=== PATIENT | male | born 1930 | race Caucasian/White ===

== ENCOUNTER 2017-04-28 10:06 | Inpatient (IN) | payer OTHER ==
[2017-04-28 10:32] VITALS: BMI 31.4
[2017-04-28] MEDS ORDERED: ACETAMINOPHEN 1000 MG/100 ML VIAL (NON FORMULARY) IVPB ONE (10:45)
[2017-04-28 11:19] LABS: HEMOGLOBIN 13.4 GM/dL (11.7-16.9); RDW 20.3 % (11.9-15.9)
[2017-04-28 11:27] LABS: HEMATOCRIT 40.4 % (35.4-49); MCH 38.3 pg (25.7-33.7); MCHC 33.2 g/dl (32.0-35.9); MEAN CELL VOLUME 115.3 fl (80-96); MEAN PLT VOLUME 9.8 fl (7.5-11.1); PLATELET COUNT 137 K/MM3 (134-434); WHITE BLOOD COUNT 15.6 K/mm3 (4.0-10.0)
[2017-04-28 11:34] LABS: URINE APPEARANCE CLEAR; URINE BLOOD NEGATIVE (NEGATIVE); URINE COLOR AMBER; URINE GLUCOSE (UA) NEGATIVE (NEGATIVE); URINE KETONE NEGATIVE (NEGATIVE); URINE LEUK ESTERASE NEGATIVE (NEGATIVE); URINE NITRITE NEGATIVE (NEGATIVE); URINE PROTEIN NEGATIVE (NEGATIVE); URINE UROBILINOGEN 4.0 E.U/dl mg/dL (0.2-1.0)
[2017-04-28] MEDS ORDERED: ACETAMINOPHEN INJECTION 100 ML IVPB ONE (11:35)
[2017-04-28 11:41] LABS: INR 1.49 (0.82-1.09); PROTHROMBIN TIME (PATIENT) 16.8 SEC (9.98-11.88)
[2017-04-28 11:44] LABS: ACTIVATED PTT 27.7 SECONDS (26.9-34.4)
[2017-04-28 11:53] LABS: ALBUMIN 3.7 g/dl (3.4-5.0); ANION GAP 8 (8-16); BILIRUBIN,TOTAL 8.4 mg/dL (0.2-1.0); BLOOD UREA NITROGEN 17 mg/dL (7-18); CALCIUM 8.3 mg/dL (8.5-10.1); CHLORIDE 107 mmol/L (98-107); CO2 26 mmol/L (21-32); CREATININE 1.1 mg/dL (0.7-1.3); GLUCOSE,RANDOM 145 mg/dL (74-106); POTASSIUM 3.7 mmol/L (3.5-5.1); SGOT/AST 146 U/L (15-37); SGPT/ALT 316 U/L (12-78); SODIUM 141 mmol/L (136-145); TOT PROT 6.5 g/dl (6.4-8.2)
[2017-04-28] MEDS ORDERED: SODIUM CHLORIDE 500 ML IV STA ×4 (11:54→16:54)
--- NOTE | 2017-04-28 11:54 | PDOC ---
History of Present Illness <Gabriel Franks - Last Filed: 04/28/17 16:07> - General History Source: Patient Exam Limitations: No Limitations - History of Present Illness Initial Comments: 04/28/17 11:59 The patient is a 86 year old male with history of ascending aortic aneurysm who presents to the ED for RUQ pain with loose stools for approximatly 1 day. He describes his pain as cramping and intermittent. The patient is also reports fever, Tmax 103, generalized weakness, and slurred speech today. He denies cough or chest pain. He denies headache or neck pain. He denies any urinary complaints. PCP: Dr. Ingram <Jazmine Carrasquillo - Last Filed: 04/28/17 16:36> - General Chief Complaint: SIRS, Suspected/Possible Stated Complaint: WEAKNESS Time Seen by Provider: 04/28/17 10:37 Past History - Past Medical History Anemia: Yes Cardiac Disorders: Yes (aneurysm) COPD: No GI Disorders: Yes (DIVERTICULOSIS;COLON POLYPS) HTN: Yes - Surgical History Abdominal Surgery: Yes (HERNIA REPAIR) - Suicide/Smoking/Psychosocial Hx Smoking History: Former smoker Have you smoked in the past 12 months: No Information on smoking cessation initiated: No Hx Alcohol Use: No Drug/Substance Use Hx: No Substance Use Type: None Hx Substance Use Treatment: No <Gabriel Franks - Last Filed: 04/28/17 16:07> <Jazmine Carrasquillo - Last Filed: 04/28/17 16:36> - Past Medical History Allergies/Adverse Reactions: Allergies Allergy/AdvReac Type Severity Reaction Status Date / Time No Known Allergies Allergy Verified 04/28/17 10:32 Home Medications: Ambulatory Orders Furosemide 20 mg PO ASDIR 12/05/14 Nebivolol HCl [Bystolic] 2.5 mg PO DAILY 12/05/14 Aspirin [ASA -] 81 mg PO DAILY 03/01/16 Cholecalciferol (Vitamin D3) [Vitamin D3] 10,000 unit PO DAILY 03/01/16 Folic Acid 1 mg PO DAILY 03/01/16 [place]-3S/Dha/Epa/Fish Oil [Fish Oil 1,200 mg Softgel] 1 each PO DAILY 03/01/16 Vitamin B Complex [B Complex] 1 each PO DAILY 03/01/16 Review of Systems - Review of Systems Able to Perform ROS?: Yes Comments:: 04/28/17 12:14 CONSTITUTIONAL: +Fever, generalized weakness. EYES: No visual changes ENT: No ear pain, no sore throat CARDIOVASCULAR: No chest pain, no palpitations RESPIRATORY: No cough, no SOB GI: +Abdominal pain, loose stools. No vomiting, no constipation, no diarrhea GENITOURINARY: No dysuria, no frequency, no hematuria MUSCULOSKELETAL: No backpain, no joint pain, no myalgias SKIN: No rash NEURO: No headache <Jazmine Carrasquillo - Last Filed: 04/28/17 16:36> *Physical Exam - Vital Signs Last Vital Signs Temp Pulse Resp BP Pulse Ox 103.8 F H 87 24 125/81 92 L 04/28/17 10:27 04/28/17 10:27 04/28/17 10:27 04/28/17 10:27 04/28/17 10:27 <Gabriel Franks - Last Filed: 04/28/17 16:07> - Vital Signs Last Vital Signs Temp Pulse Resp BP Pulse Ox 103.8 F H 87 24 125/81 92 L 04/28/17 10:27 04/28/17 10:27 04/28/17 10:27 04/28/17 10:27 04/28/17 10:27 - Physical Exam Comments: 04/28/17 15:09 CONSTITUTIONAL: Well-appearing; well-nourished; generally weak appearing HEAD: Normocephalic; atraumatic EYES: PERRL; EOM intact ENMT: External appears normal; normal oropharynx; dry mucous membranes NECK: Supple; non-tender; no cervical lymphadenopathy CARD: Normal S1, S2; no murmurs, rubs, or gallops RESP: Normal chest excursion with respiration; breath sounds clear and equal bilaterally; no wheezes, rhonchi, or rales ABD: Soft, non-distended; non-tender; no palpable organomegaly, no palpable hernias EXT: Normal ROM in all four extremities; non-tender to palpation; distal pulses intact SKIN: Jaundinced; Warm, dry, no rash NEURO: Slow to response to questions; awake and alert; oriented to self and place; moving all extremities symmetrically <Jazmine Carrasquillo - Last Filed: 04/28/17 16:36> Heart Score/ECG Review #1 04/28/17 13:04 EKG obtained 11:36. Normal sinus rhythm at 88 bpm. Normal EKG. <Jazmine Carrasquillo - Last Filed: 04/28/17 16:36> ED Treatment Course - LABORATORY CBC & Chemistry Diagram: 04/28/17 11:11 04/28/17 11:11 - ADDITIONAL ORDERS Additional order review: Laboratory Results 04/28/17 04/28/17 11:11 11:09 PT with INR 16.80 H INR 1.49 H PTT (Actin FS) 27.7 Urine Color Yoko Urine Appearance Clear Urine pH 5.0 Ur Specific [place] 1.012 Urine Protein Negative Urine Glucose (UA) Negative Urine Ketones Negative Urine Blood Negative Urine Nitrite Negative Urine Bilirubin 2.0 Urine Urobilinogen 4.0 e.u/dl Ur Leukocyte Esterase Negative 04/28/17 11:11 RBC 3.50 L MCV 115.3 H MCHC 33.2 RDW 20.3 H MPV 9.8 D Neutrophils % No Result Required. Lymphocytes % No Result Required. - RADIOLOGY Radiology Studies Ordered: Category Date Time Status CHEST X-RAY PORTABLE* [RAD] Stat Radiology 04/28/17 10:43 Taken - Medications Given in the ED: ED Medications Discontinued Medications Generic Name Dose Route Start Last Admin Trade Name Deuceq PRN Reason Stop Dose Admin Acetaminophen 1,000 mg 04/28/17 10:45 04/28/17 11:39 Ofirmev Injection - IVPB 04/28/17 10:46 1,000 mg ONCE ONE Administration <Gabriel Franks - Last Filed: 04/28/17 16:07> - LABORATORY CBC & Chemistry Diagram: 04/28/17 11:11 04/28/17 11:11 - ADDITIONAL ORDERS Additional order review: Laboratory Results 04/28/17 04/28/17 11:11 11:09 PT with INR 16.80 H INR 1.49 H PTT (Actin FS) 27.7 Urine Color Yoko Urine Appearance Clear Urine pH 5.0 Ur Specific [place] 1.012 Urine Protein Negative Urine Glucose (UA) Negative Urine Ketones Negative Urine Blood Negative Urine Nitrite Negative Urine Bilirubin 2.0 Urine Urobilinogen 4.0 e.u/dl Ur Leukocyte Esterase Negative 04/28/17 11:11 RBC 3.50 L MCV 115.3 H MCHC 33.2 RDW 20.3 H MPV 9.8 D Neutrophils % No Result Required. Lymphocytes % No Result Required. - Medications Given in the ED: ED Medications Discontinued Medications Generic Name Dose Route Start Last Admin Trade Name Eugene PRN Reason Stop Dose Admin Acetaminophen 1,000 mg 04/28/17 10:45 04/28/17 11:39 Ofirmev Injection - IVPB 04/28/17 10:46 1,000 mg ONCE ONE Administration <Jazmine Carrasquillo - Last Filed: 04/28/17 16:36> Medical Decision Making - Medical Decision Making 04/28/17 16:07 Patient is an 86-year-old male who presents to the ER with signs and symptoms of acute cholangitis. Patient's febrile, jaundice, with mild right-sided abdominal tenderness to palpation. CBC reveals leukocytosis with predominance of neutrophils. CMP reveals elevated bilirubin with increased direct fraction, elevated AST/ALTs and alkaline phosphatase. Ultrasound reveals no evidence of acute cholecystitis but presence of biliary sludge. Patient is received IV fluids, acetaminophen for fever control, and IV Zosyn. Case discussed with surgery. Agrees with plan of care. Will consult GI. Will admit to noncardiac telemetry. <Gabriel Franks - Last Filed: 04/28/17 16:07> - Medical Decision Making 04/28/17 16:[address] Hickman of general surgery and Dr. Marie of gastroenterology <Jazmine Carrasquillo - Last Filed: 04/28/17 16:36> *DC/Admit/Observation/Transfer - Discharge Dispostion Admit: Yes <Gabriel Franks - Last Filed: 04/28/17 16:07> - Attestations Scribe Attestion: 04/28/17 12:18 Documentation prepared by Jazmine Carrasquillo, acting as medical health researcher for Gabriel Franks MD. <Jazmine Carrasquillo - Last Filed: 04/28/17 16:36> Diagnosis at time of Disposition: Acute cholangitis - Discharge Dispostion Condition at time of disposition: Fair
[2017-04-28 11:55] LABS: ALK PHOS 274 U/L (45-117)
[2017-04-28 12:03] LABS: VENOUS PC02 44.5 mmHg (38-52); VENOUS PH 7.39 (7.32-7.42); VENOUS PO2 28.6 mmHg (28-48)
[2017-04-28 12:08] LABS: PLATELET ESTIMATE NORMAL
[2017-04-28] MEDS ORDERED: PIPERACIL/TAZOB 3.375 GM 3.375 GM/50 ML PREMIX IVPB ONE (12:28)
[2017-04-28] MEDS ORDERED: PIPERACILLIN/TAZOB 3.375 GM 3.375 GM in DEXTROSE 5%-WATER - 50 ML IVPB ONE (12:30)
[2017-04-28] MEDS ORDERED: PIPERACILLIN/TAZOB 3.375 GM 3.375 GM/50 ML BAG IVPB ONE (12:32)
--- NOTE | 2017-04-28 13:06 | EKG ---
Test Reason : Blood Pressure : / mmHG Vent. Rate : 088 BPM Atrial Rate : 088 BPM P-R Int : 206 ms QRS Dur : 094 ms QT Int : 362 ms P-R-T Axes : 000 -23 011 degrees QTc Int : 438 ms NORMAL SINUS RHYTHM NORMAL ECG WHEN COMPARED WITH ECG OF 01-MAR-2016 10:10, NO SIGNIFICANT CHANGE WAS FOUND Confirmed by DENITA BYRNE MD ([id number]) on 04/28/2017 1:06:06 PM Referred By: Confirmed By:DENITA BYRNE MD
[2017-04-28 13:20] LABS: BILIRUBIN,DIRECT 6.6 mg/dL (0.0-0.2)
[2017-04-28] MEDS ORDERED: MORPHINE SULFATE 10 MG/1 ML *VIAL IVPUSH PRN (16:36)
[2017-04-28] MEDS ORDERED: VANCOMYCIN 1,000 MG in DEXTROSE 5%-WATER - 250 ML IVPB SCH (16:45)
[2017-04-28] MEDS ORDERED: VANCOMYCIN 1,000 MG in DEXTROSE 5%-WATER - 250 ML IVPB ONE (16:45)
--- NOTE | 2017-04-28 17:29 | CONSULT ---
Consult Consult Specialty:: General Surgery Referred by:: Gabriel Franks Reason for Consultation:: jaundice, fever, gb sludge, ?cholangitis - History of Present Illness Chief Complaint: epigastric/periumbilical pain History of Present Illness: 86yo M with ascending aortic aneurysm on nebivolol and baby asa daily, s/p bilateral inguinal hernia repair and laparoscopic ventral hernia repair secondary to associated intestinal obstruction 03/17, was in usual state of health recently but has experienced chills and feeling very cold the last two nights, some diarrhea yesterday with a little nausea but no vomiting, and this morning experienced significant upper central abdominal pain and could not get himself up off the toilet. He was brought to the ER by EMS, and noted to have oral temp 100, rectal temp 103, wbc 16 with elevated LFTs (bili 10/04 direct), BUN /Cr 17/1.1, INR 1.5, neg UA, and US showed gallbladder with sludge but no stones , and no other signs of cholecystitis or biliary ductal dilation. He has been given some IV fluids, kept NPO, pain responded well to morphine, and he had a dose of Zosyn in the ER. Surgery is consulted to evaluate for likely cholangitis. Amylase and lipase were also checked and are high at 490 and 4670, consistent with biliary pancreatitis as well. GI has also been consulted. The patient has been admitted to the medical service with ID consult pending, too. - History Source History Provided By: Patient, Family Member ( at bedside) Limitations to Obtaining History: No Limitations - Past Medical History Cardio/Vascular: Yes: Aneurysm (ascending aortic aneurysm (4.1 cm per echo )), HTN Gastrointestinal: Yes: Diverticulosis, Other (colonic polyps) - Past Surgical History Past Surgical History: Yes: Cataract Removal (bilateral), Colonoscopy, Hernia Repair (bilateral inguinal, laparoscopic ventral w/associated obstruction 03/17 at [facility]), Upper Endoscopy - Alcohol/Substance Use Hx Alcohol Use: Yes (wine sometimes) History of Substance Use: reports: None - Smoking History Smoking history: Former smoker Have you smoked in the past 12 months: No If you are a former smoker, when did you quit?: 60 yrs ago - Social History Usual Living Arrangement: With Spouse Home Medications - Allergies Allergies/Adverse Reactions: Allergies Allergy/AdvReac Type Severity Reaction Status Date / Time No Known Allergies Allergy Verified 04/28/17 10:32 - Home Medications Home Medications: Ambulatory Orders Furosemide 20 mg PO ASDIR 12/05/14 Nebivolol HCl [Bystolic] 2.5 mg PO DAILY 12/05/14 Aspirin [ASA -] 81 mg PO DAILY 03/01/16 Cholecalciferol (Vitamin D3) [Vitamin D3] 10,000 unit PO DAILY 03/01/16 Folic Acid 1 mg PO DAILY 03/01/16 [place]-3S/Dha/Epa/Fish Oil [Fish Oil 1,200 mg Softgel] 1 each PO DAILY 03/01/16 Vitamin B Complex [B Complex] 1 each PO DAILY 03/01/16 Family Disease History - Family Disease History Family Disease History: CA: Sister ( of pancreatic CA at 50) Review of Systems - Review of Systems Constitutional: reports: Chills (last 2 nights), Weakness (could not get up from toilet this morning). denies: Fever, Loss of Appetite Eyes: reports: Other (reading glasses used). denies: Recent Change in Vision HENT: reports: Hearing Loss (uses hearing aids bilat - left at home). denies: Difficult Swallowing, Nasal Congestion, Throat Pain Neck: denies: Swollen Glands, Tenderness Cardiovascular: denies: Chest Pain, Palpitations Respiratory: denies: Cough, SOB Gastrointestinal: reports: Abdominal Pain (with hpi), Diarrhea (yesterday with hpi), Nausea (last night). denies: Constipation, Vomiting Genitourinary: denies: Burning, Dysuria Musculoskeletal: denies: Back Pain, Joint Pain, Muscle Pain Integumentary: reports: Change in Color (pt and did not notice until ER pointed out). denies: Rash Neurological: denies: Confusion, Headache, Unsteady Gait (denies) Psychiatric: denies: Anxiety, Depression Physical Exam Vital Signs: Vital Signs Temperature 98.9 F 04/28/17 16:53 Pulse Rate 69 04/28/17 16:53 Respiratory Rate 18 04/28/17 16:53 Blood Pressure 97/62 04/28/17 16:53 O2 Sat by Pulse Oximetry (%) 98 04/28/17 16:53 Constitutional: Yes: Well Nourished, No Distress, Calm Eyes: Yes: EOM Intact, Sclera Icterus (mild) HENT: Yes: Atraumatic, Normocephalic Neck: Yes: Supple, Trachea Midline Cardiovascular: Yes: Regular Rate and Rhythm, Murmur Respiratory: Yes: Regular, CTA Bilaterally Gastrointestinal: Yes: Normal Bowel Sounds, Soft, Tenderness, Epigastrium (mild tenderness to deep palpation epigastric only, no R/G). No: Distention, Hernia, Tenderness, Rebound ...Rectal Exam: Yes: Deferred Renal/: No: CVA Tenderness - Left, CVA Tenderness - Right Musculoskeletal: No: Back Pain (no direct tenderness), Joint Swelling Extremities: No: Cool, Cyanosis Edema: Yes Edema: LLE: Trace (pitting), RLE: Trace (pitting) Peripheral Pulses WNL: Yes Integumentary: Yes: Jaundice (mild (per , was more earlier today when pointed out on arrival to ER)). No: Rash Neurological: Yes: Alert, Oriented, Confusion (moments of confusion/ forgetfulness, slow to answer at times, speaks slowly) Psychiatric: Yes: Alert. No: Agitated Labs: CBC, BMP 04/28/17 11:11 04/28/17 11:11 CMP Sodium 141 mmol/L (136-145) 04/28/17 11:11 Potassium 3.7 mmol/L (3.5-5.1) 04/28/17 11:11 Chloride 107 mmol/L (98-107) 04/28/17 11:11 Carbon Dioxide 26 mmol/L (21-32) 04/28/17 11:11 Anion Gap 8 (8-16) 04/28/17 11:11 BUN 17 mg/dL (7-18) D 04/28/17 11:11 Creatinine 1.1 mg/dL (0.7-1.3) D 04/28/17 11:11 Creat Clearance w eGFR > 60 (>60) 04/28/17 11:11 Random Glucose 145 mg/dL (74-106) H D 04/28/17 11:11 Lactic Acid 1.6 mmol/L (0.0-2.0) 04/28/17 11:55 Calcium 8.3 mg/dL (8.5-10.1) L 04/28/17 11:11 Total Bilirubin 8.4 mg/dL (0.2-1.0) H D 04/28/17 11:11 Direct Bilirubin 6.6 mg/dL (0.0-0.2) H 04/28/17 11:11 AST 146 U/L (15-37) H D 04/28/17 11:11 ALT 316 U/L (12-78) H D 04/28/17 11:11 Alkaline Phosphatase 274 U/L (45-117) H D 04/28/17 11:11 Creatine Kinase 124 IU/L (39-308) 04/28/17 11:11 Troponin I < 0.02 ng/ml (0.00-0.05) 04/28/17 11:11 Total Protein 6.5 g/dl (6.4-8.2) 04/28/17 11:11 Albumin 3.7 g/dl (3.4-5.0) D 04/28/17 11:11 Total Amylase 490 U/L (25-115) H 04/28/17 16:03 Lipase 4674 U/L (73-393) H 04/28/17 16:03 INR, PTT INR 1.49 (0.82-1.09) H 04/28/17 11:11 Urine Test Results Urine Color Yoko 04/28/17 11:09 Urine Appearance Clear 04/28/17 11:09 Urine pH 5.0 (5.0-8.0) 04/28/17 11:09 Ur Specific [place] 1.012 (1.001-1.035) 04/28/17 11:09 Urine Protein Negative (NEGATIVE) 04/28/17 11:09 Urine Glucose (UA) Negative (NEGATIVE) 04/28/17 11:09 Urine Ketones Negative (NEGATIVE) 04/28/17 11:09 Urine Blood Negative (NEGATIVE) 04/28/17 11:09 Urine Nitrite Negative (NEGATIVE) 04/28/17 11:09 Urine Bilirubin 2.0 (NEGATIVE) 04/28/17 11:09 Ur Leukocyte Esterase Negative (NEGATIVE) 04/28/17 11:09 lactate down from 2.9 am/lip just run - high Imaging - Results Ultrasound: Report Reviewed (layering sludge but no stones, no wall thickening or pericholecystic fluid, no biliary ductal dilation), Image Reviewed MRI: Pending Problem List - Problems (1) Acute biliary pancreatitis without infection or necrosis Assessment/Plan: probably secondary to sludge in CBD or small stones passing, as US showed only sludge and no stones NPO/generous IV fluids MRCP with contrast pending, GI consult pending need to evaluate cbd for ongoing obstruction trend labs pain meds prn will follow with you Code(s): K85.10 - BILIARY ACUTE PANCREATITIS WITHOUT NECROSIS OR INFECTION (2) Cholelithiasis with cholangitis with biliary obstruction Assessment/Plan: probably sludge in CBD as noted above MRCP pending NPO/IVF pain meds prn agree with continuing Zosyn, ID consulted consider hepatitis panel, as bilirubin is quite high for stone disease will follow Code(s): K80.21 - CALCULUS OF GALLBLADDER W/O CHOLECYSTITIS WITH OBSTRUCTION; K83.0 - CHOLANGITIS Qualifiers: Cholelithiasis location: bile duct Cholangitis acuity: acute Qualified Code(s): K80.33 - Calculus of bile duct with acute cholangitis with obstruction (3) Epigastric abdominal pain Assessment/Plan: improved significantly from earlier Code(s): R10.13 - EPIGASTRIC PAIN (4) Aneurysm, aorta, thoracic Assessment/Plan: ok to continue bystolic with sips of water as BP tolerates cardiology also consulted pt to go to telemetry floor hold aspirin given pending possible interventions (ERCP? surgery?) Code(s): I71.2 - THORACIC AORTIC ANEURYSM, WITHOUT RUPTURE Qualifiers: Presence of rupture: without rupture Qualified Code(s): I71.2 - Thoracic aortic aneurysm, without rupture
[2017-04-28] MEDS ORDERED: PIPERACILLIN/TAZOB 3.375 GM 3.375 GM in DEXTROSE 5%-WATER - 50 ML IVPB SCH (18:00)
[2017-04-28] MEDS ORDERED: PIPERACIL/TAZOB 3.375 GM 3.375 GM/50 ML PREMIX IVPB SCH (18:00)
[2017-04-28] MEDS ORDERED: VANCOMYCIN 1 GRAM (PRE-DOCKED) 1,000 MG/250 ML BAG IVPB ONE (18:33)
--- NOTE | 2017-04-28 19:44 | CON.GI ---
Consult Consult Specialty:: GI Referred by:: Dr Ingram - History of Present Illness History of Present Illness: 86 y/o male was admiited with diarrhea and severe weakness. Yesterday he developed abdominal pain which was resolved. Abdominal ultrasound and MRCP revealed dilated gallbladder associated wth normal CBD. Mri revealed mild pancreatitis - Past Medical History Cardio/Vascular: Yes: Aneurysm (ascending aortic aneurysm (4.1 cm per echo )), HTN Gastrointestinal: Yes: Diverticulosis, Other (colonic polyps) - Past Surgical History Past Surgical History: Yes: Cataract Removal (bilateral), Colonoscopy, Hernia Repair (bilateral inguinal, laparoscopic ventral w/associated obstruction 03/17 at [facility]), Upper Endoscopy - Alcohol/Substance Use Hx Alcohol Use: Yes (wine sometimes) History of Substance Use: reports: None - Smoking History Smoking history: Former smoker Have you smoked in the past 12 months: No If you are a former smoker, when did you quit?: 60 yrs ago - Social History Usual Living Arrangement: With Spouse Home Medications - Allergies Allergies/Adverse Reactions: Allergies Allergy/AdvReac Type Severity Reaction Status Date / Time No Known Allergies Allergy Verified 04/28/17 10:32 - Home Medications Home Medications: Ambulatory Orders Furosemide 20 mg PO ASDIR 12/05/14 Nebivolol HCl [Bystolic] 2.5 mg PO DAILY 12/05/14 Aspirin [ASA -] 81 mg PO DAILY 03/01/16 Cholecalciferol (Vitamin D3) [Vitamin D3] 10,000 unit PO DAILY 03/01/16 Folic Acid 1 mg PO DAILY 03/01/16 [place]-3S/Dha/Epa/Fish Oil [Fish Oil 1,200 mg Softgel] 1 each PO DAILY 03/01/16 Vitamin B Complex [B Complex] 1 each PO DAILY 03/01/16 Family Disease History - Family Disease History Family Disease History: CA: Sister ( of pancreatic CA at 50) Physical Exam-GI Vital Signs: Vital Signs Temperature 98.1 F 04/28/17 18:58 Pulse Rate 74 04/28/17 18:58 Respiratory Rate 20 04/28/17 18:58 Blood Pressure 104/65 04/28/17 18:58 O2 Sat by Pulse Oximetry (%) 98 04/28/17 16:53 Constitutional: Yes: Well Nourished Eyes: Yes: Conjunctiva Clear, Occular Prosthesis HENT: Yes: Tonsillar Exudate Cardiovascular: Yes: Regular Rate and Rhythm Respiratory: Yes: CTA Bilaterally ...Palpate: Yes: Soft. No: Firm/Rigid, Guarding, Hepatomegaly, Mass, Pulsatile Mass, Splenomegaly, Tenderness Labs: CBC, BMP 04/28/17 11:11 04/28/17 11:11 INR, PTT INR 1.49 (0.82-1.09) H 04/28/17 11:11 Hepatic Panel Total Bilirubin 8.4 mg/dL (0.2-1.0) H D 04/28/17 11:11 Direct Bilirubin 6.6 mg/dL (0.0-0.2) H 04/28/17 11:11 AST 146 U/L (15-37) H D 04/28/17 11:11 ALT 316 U/L (12-78) H D 04/28/17 11:11 Alkaline Phosphatase 274 U/L (45-117) H D 04/28/17 11:11 Albumin 3.7 g/dl (3.4-5.0) D 04/28/17 11:11 Problem List - Problems (1) Biliary acute pancreatitis Assessment/Plan: associated with biliary sludge , normal CBD, possible acute cholecystitis causing fever R> expect lipase to normalize Actigall 300mg bid wiil start on Ceftriaxone and Flagyl discussed with Dr Oropeza and Dr Herman and Marylou if clinical findings worsen will need percutaneous cholecystostomy Code(s): K85.10 - BILIARY ACUTE PANCREATITIS WITHOUT NECROSIS OR INFECTION
[2017-04-28] MEDS: D5-1/2NS+20 MEQ KCL - 20 MEQ/1,000 ML INFUS.BAG IV SCH (21:26)
[2017-04-28] MEDS: HEPARIN NA (PORCINE) 5,000 UNITS/ML 1ML VIAL SQ SCH (22:40)
[2017-04-28] MEDS: CEFTRIAXONE 1 G/50 ML PREMIX 50 ML IVPB SCH (22:40)
[2017-04-28] MEDS: URSODIOL 300 MG CAPSULE PO SCH (22:40)
[2017-04-29 06:34] LABS: BASO % 0.3 % (0-2.0); HEMATOCRIT 31.8 % (35.4-49); LYMPH % 13.3 % (8-40); MCH 39.7 pg (25.7-33.7); MCHC 34.6 g/dl (32.0-35.9); MEAN CELL VOLUME 114.9 fl (80-96); MEAN PLT VOLUME 9.8 fl (7.5-11.1); MONO % 4.3 % (3.8-10.2); NEUT % 82.1 % (42.8-82.8); PLATELET COUNT 117 K/MM3 (134-434); RBC 2.76 M/mm3 (4.00-5.60); RDW 20.4 % (11.9-15.9); WHITE BLOOD COUNT 13.9 K/mm3 (4.0-10.0)
[2017-04-29 06:39] LABS: INR 1.69 (0.82-1.09); PROTHROMBIN TIME (PATIENT) 19.1 SEC (9.98-11.88)
[2017-04-29 06:58] LABS: ALBUMIN 2.8 g/dl (3.4-5.0); ANION GAP 10 (8-16); BLOOD UREA NITROGEN 22 mg/dL (7-18); CALCIUM 7.9 mg/dL (8.5-10.1); CHLORIDE 108 mmol/L (98-107); CO2 25 mmol/L (21-32); GLUCOSE,RANDOM 114 mg/dL (74-106); POTASSIUM 3.4 mmol/L (3.5-5.1); SODIUM 143 mmol/L (136-145)
[2017-04-29 07:01] LABS: ALK PHOS 191 U/L (45-117); BILIRUBIN,TOTAL 6.9 mg/dL (0.2-1.0); CREATININE 0.8 mg/dL (0.7-1.3); SGOT/AST 94 U/L (15-37); SGPT/ALT 222 U/L (12-78); TOT PROT 5.3 g/dl (6.4-8.2)
[2017-04-29 07:02] LABS: AMYLASE 263 U/L (25-115)
[2017-04-29 07:08] LABS: LIPASE 1920 U/L (73-393)
--- NOTE | 2017-04-29 08:50 | HP ---
Admitting History and Physical - Admission History of Present Illness: 86yo M with ascending aortic aneurysm on nebivolol and baby asa daily, s/p bilateral inguinal hernia repair and laparoscopic ventral hernia repair secondary to associated intestinal obstruction 03/17, was in usual state of health recently but has experienced chills and feeling very cold the last two nights, some diarrhea yesterday with a little nausea but no vomiting, and this morning experienced significant upper central abdominal pain and could not get himself up off the toilet. He was brought to the ER by EMS, and noted to have oral temp 100, rectal temp 103, wbc 16 with elevated LFTs (bili 10/04 direct), BUN /Cr 17/1.1, INR 1.5, neg UA, and US showed gallbladder with sludge but no stones , and no other signs of cholecystitis or biliary ductal dilation. He has been given some IV fluids, kept NPO, pain responded well to morphine, and he had a dose of Zosyn in the ER. Comfortable this am - Past Medical History Cardiovascular: Yes: Aneurysm (ascending aortic aneurysm (4.1 cm per echo) ), HTN Gastrointestinal: Yes: Diverticulosis, Other (colonic polyps) - Past Surgical History Past Surgical History: Yes: Cataract Removal (bilateral), Colonoscopy, Hernia Repair (bilateral inguinal, laparoscopic ventral w/associated obstruction 03/17 at [facility]), Upper Endoscopy - Smoking History Smoking history: Former smoker Have you smoked in the past 12 months: No If you are a former smoker, when did you quit?: 60 yrs ago - Alcohol/Substance Use Hx Alcohol Use: Yes (wine sometimes) History of Substance Use: reports: None Home Medications - Allergies Allergies/Adverse Reactions: Allergies Allergy/AdvReac Type Severity Reaction Status Date / Time No Known Allergies Allergy Verified 04/28/17 10:32 - Home Medications Home Medications: Ambulatory Orders Furosemide 20 mg PO ASDIR 12/05/14 Nebivolol HCl [Bystolic] 2.5 mg PO DAILY 12/05/14 Aspirin [ASA -] 81 mg PO DAILY 03/01/16 Cholecalciferol (Vitamin D3) [Vitamin D3] 10,000 unit PO DAILY 03/01/16 Folic Acid 1 mg PO DAILY 03/01/16 [place]-3S/Dha/Epa/Fish Oil [Fish Oil 1,200 mg Softgel] 1 each PO DAILY 03/01/16 Vitamin B Complex [B Complex] 1 each PO DAILY 03/01/16 Family Disease History - Family Disease History Family Disease History: CA: Sister ( of pancreatic CA at 50) Physical Examination Vital Signs: Vital Signs Temperature 98.2 F 04/29/17 05:42 Pulse Rate 69 04/29/17 05:42 Respiratory Rate 20 04/29/17 05:42 Blood Pressure 101/60 04/29/17 05:42 O2 Sat by Pulse Oximetry (%) 98 04/28/17 21:00 Cardiovascular: Yes: Regular Rate and Rhythm Respiratory: Yes: Regular, CTA Bilaterally Gastrointestinal: Yes: Normal Bowel Sounds, Soft. No: Tenderness Labs: CBC, BMP 04/29/17 06:05 04/29/17 06:05 Imaging - Results Ultrasound: Report Reviewed Problem List - Problems (1) Acute cholangitis Assessment/Plan: IV ABX ID/GI/SURGERY ON BOARD IVF NPO FOLLOW LABS Code(s): K83.0 - CHOLANGITIS (2) Biliary acute pancreatitis Assessment/Plan: ABOVE Code(s): K85.10 - BILIARY ACUTE PANCREATITIS WITHOUT NECROSIS OR INFECTION (3) Cholelithiasis with cholangitis with biliary obstruction Assessment/Plan: ABOVE Code(s): K80.21 - CALCULUS OF GALLBLADDER W/O CHOLECYSTITIS WITH OBSTRUCTION; K83.0 - CHOLANGITIS Qualifiers: Cholelithiasis location: bile duct Cholangitis acuity: acute Qualified Code(s): K80.33 - Calculus of bile duct with acute cholangitis with obstruction (4) Aneurysm, aorta, thoracic Assessment/Plan: STABLE Code(s): I71.2 - THORACIC AORTIC ANEURYSM, WITHOUT RUPTURE Qualifiers: Presence of rupture: without rupture Qualified Code(s): I71.2 - Thoracic aortic aneurysm, without rupture (5) Hypertension Assessment/Plan: MONITOR ON CURRENT MEDS Code(s): I10 - ESSENTIAL (PRIMARY) HYPERTENSION Qualifiers: Hypertension type: essential hypertension Qualified Code(s): I10 - Essential (primary) hypertension
[2017-04-29] MEDS: CEFTRIAXONE 1 G/50 ML PREMIX 50 ML IVPB SCH (09:11)
[2017-04-29] MEDS: URSODIOL 300 MG CAPSULE PO SCH ×2 (09:11→21:22)
[2017-04-29] MEDS: HEPARIN NA (PORCINE) 5,000 UNITS/ML 1ML VIAL SQ SCH (09:11)
[2017-04-29] MEDS: NEBIVOLOL 5 MG TABLET (FP) PO SCH (09:11)
--- NOTE | 2017-04-29 09:50 | CON.ID ---
Consult Consult Specialty:: Infectious Disease Referred by:: Primary Team Reason for Consultation:: sepsis - History of Present Illness History of Present Illness: 86 year old M with pmh of ascending aortic aneurysm on bystolic, and 2 prior hernia repairs presented with chills, diarrhea, and weakness. Patient states he had been feeling weak x 2 days and having nonbloody diarrhea. Patient found to be weak yesterday morning on the toilet and couldn't get off, which prompted him to come to the ER. In the ER he had a temp of 103. Patient endorses chills x 2 days. Patient denies chest pain, sob, abdominal pain, dysuria, hematuria. Patient lives at home with his without any pets. Patient does not smoke and drinks alcohol occasionally. 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 - History Source History Provided By: Patient Limitations to Obtaining History: No Limitations - Past Medical History Cardio/Vascular: Yes: Aneurysm (ascending aortic aneurysm (4.1 cm per echo )), HTN Gastrointestinal: Yes: Diverticulosis, Other (colonic polyps) - Past Surgical History Past Surgical History: Yes: Cataract Removal (bilateral), Colonoscopy, Hernia Repair (bilateral inguinal, laparoscopic ventral w/associated obstruction 03/17 at [facility]), Upper Endoscopy - Alcohol/Substance Use Hx Alcohol Use: Yes (wine sometimes) History of Substance Use: reports: None - Smoking History Smoking history: Former smoker Have you smoked in the past 12 months: No If you are a former smoker, when did you quit?: 60 yrs ago - Social History Usual Living Arrangement: With Spouse Home Medications - Allergies Allergies/Adverse Reactions: Allergies Allergy/AdvReac Type Severity Reaction Status Date / Time No Known Allergies Allergy Verified 04/28/17 10:32 - Home Medications Home Medications: Ambulatory Orders Furosemide 20 mg PO ASDIR 12/05/14 Nebivolol HCl [Bystolic] 2.5 mg PO DAILY 12/05/14 Aspirin [ASA -] 81 mg PO DAILY 03/01/16 Cholecalciferol (Vitamin D3) [Vitamin D3] 10,000 unit PO DAILY 03/01/16 Folic Acid 1 mg PO DAILY 03/01/16 [place]-3S/Dha/Epa/Fish Oil [Fish Oil 1,200 mg Softgel] 1 each PO DAILY 03/01/16 Vitamin B Complex [B Complex] 1 each PO DAILY 03/01/16 Family Disease History - Family Disease History Family Disease History: CA: Sister ( of pancreatic CA at 50) Review of Systems - Review of Systems Constitutional: reports: Chills, Fever. denies: Diaphoresis Eyes: reports: No Symptoms HENT: reports: No Symptoms Neck: reports: No Symptoms Cardiovascular: reports: No Symptoms Respiratory: reports: No Symptoms Gastrointestinal: reports: Diarrhea Neurological: reports: No Symptoms Physical Exam Vital Signs: Vital Signs Temperature 98.2 F 04/29/17 05:42 Pulse Rate 69 04/29/17 05:42 Respiratory Rate 20 04/29/17 05:42 Blood Pressure 101/60 04/29/17 05:42 O2 Sat by Pulse Oximetry (%) 98 04/28/17 21:00 Constitutional: Yes: No Distress, Calm Eyes: Yes: Conjunctiva Clear, EOM Intact, Sclera Icterus HENT: Yes: Atraumatic, Normocephalic. No: Thrush Neck: Yes: Supple, Trachea Midline Cardiovascular: Yes: Regular Rate and Rhythm, S1, S2 Respiratory: Yes: Regular, CTA Bilaterally Gastrointestinal: Yes: Normal Bowel Sounds, Soft, Abdomen, Obese, Other. No: Tenderness Edema: No Integumentary: Yes: Jaundice Neurological: Yes: Alert, Oriented Labs: CBC, BMP 04/29/17 06:05 04/29/17 06:05 Assessment/Plan Assessment: 1. Acute Cholangitis 2. Biliary pancreatitis 3. Acute cholecystitis Plan: 1. Zosyn 4.5g q8h 2. Surgery on board 3. GI on board 4. May need Perc bhargavi if patient does not improve
--- NOTE | 2017-04-29 10:26 | PN ---
Teaching Attending Note Name of Resident: Won Faith ATTENDING PHYSICIAN STATEMENT I saw and evaluated the patient. I reviewed the resident's note and discussed the case with the resident. I agree with the resident's findings and plan as documented. SUBJECTIVE:Chart reviewed Examined absolutely no abd pain Tmax 103.8 OBJECTIVE: ASSESSMENT AND PLAN: Microbiology 04/28/17 11:09 Urine - Urine - Catheterized Urine Culture - Final NO GROWTH OBTAINED Laboratory Tests 04/28/17 04/28/17 04/28/17 11:09 11:11 11:16 WBC 15.6 H D Hgb Hct Plt Count INR Lactic Acid 2.9 H* Total Bilirubin ALT Alkaline Phosphatase Ur Leukocyte Esterase Negative 04/28/17 04/29/17 04/29/17 11:55 06:05 06:05 WBC 13.9 H Hgb 11.0 L D Hct 31.8 L D Plt Count 117 L INR Lactic Acid 1.6 Total Bilirubin 6.9 H ALT 222 H D Alkaline Phosphatase 191 H D Ur Leukocyte Esterase 04/29/17 06:05 WBC Hgb Hct Plt Count INR 1.69 H Lactic Acid Total Bilirubin ALT Alkaline Phosphatase Ur Leukocyte Esterase Assessment Biliary pancreatitis with obstruction. ? Cholecystitis Cholangitis Plan Zosyn pending final cultures Surgery GI on board ? Drainage catheter Chris CONTRERAS Problem List - Problems (1) Cholecystitis Code(s): K81.9 - CHOLECYSTITIS, UNSPECIFIED (2) Acute cholangitis Code(s): K83.0 - CHOLANGITIS (3) Biliary acute pancreatitis Code(s): K85.10 - BILIARY ACUTE PANCREATITIS WITHOUT NECROSIS OR INFECTION
--- NOTE | 2017-04-29 10:43 | PN ---
Progress Note, Physician Chief Complaint: fever, epigastric pain History of Present Illness: Pt with cholecystitis and biliary pancreatitis with cholangitis and jaundice, seen and examined in bed. No pain currently, no more fevers, no BM yet. Thirsty/ using mouth swabs, but not hungry. Has been OOB briefly for MRCP yesterday. No specific complaints. MRCP was negative for ductal blockage or dilation, did show cholecystitis and pancreatitis. Labs are decreasing somewhat (LFTs and am/ lip, wbc). - Current Medication List Current Medications: Active Medications Heparin Sodium (Porcine) (Heparin -) 5,000 unit SQ BID [facility] Last Admin: 04/29/17 09:11 Dose: Not Given Potassium Chloride/Dextrose/Sod Cl (D5-1/2ns+20 Meq Kcl -) 20 meq in 1,000 mls @ 125 mls/hr IV ASDIR [facility] Last Admin: 04/28/17 21:26 Dose: 125 mls/hr Vancomycin HCl 1,000 mg/ (Dextrose) 250 mls @ 250 mls/hr IVPB DAILY [facility] PRN Reason: Protocol Metronidazole (Flagyl 500mg Premixed Ivpb -) 500 mg in 100 mls @ 100 mls/hr IVPB Q8H-IV [facility] Last Admin: 04/29/17 09:11 Dose: 100 mls/hr CEFTRIAXONE 1 G/50 ML PREMIX (Ceftriaxone 1 Gm-D5w Bag) 50 mls @ 100 mls/hr IVPB DAILY [facility] Last Admin: 04/29/17 09:11 Dose: 100 mls/hr Potassium Chloride 10 meq/ (Sodium Chloride) 105 mls @ 105 mls/hr IVPB Q60M [facility] Stop: 04/29/17 11:59 Piperacillin/Tazobactam/Dextrose (Zosyn 4.5gm Ivpb (Premix)) 4.5 gm in 100 mls @ 200 mls/hr IVPB Q8H-IV [facility] PRN Reason: Protocol Morphine Sulfate (Morphine Injection -) 1 mg IVPUSH Q4H PRN PRN Reason: PAIN LEVEL 6-10 Nebivolol (Bystolic -) 2.5 mg PO DAILY [facility] Last Admin: 04/29/17 09:11 Dose: Not Given Ursodiol (Actigal -) 300 mg PO BID [facility] Last Admin: 04/29/17 09:11 Dose: Not Given - Objective Vital Signs: Vital Signs Temperature 98.2 F 04/29/17 10:00 Pulse Rate 69 04/29/17 10:00 Respiratory Rate 20 04/29/17 10:00 Blood Pressure 101/60 04/29/17 10:00 O2 Sat by Pulse Oximetry (%) 98 04/29/17 09:00 Vital Signs Period Temp Pulse Resp BP Sys/Shipley Pulse Ox Last 24 Hr 98 F-98.9 F 65-74 18-20 97-109/60-72 97-98 Constitutional: Yes: Well Nourished, No Distress, Calm Eyes: Yes: EOM Intact, Sclera Icterus (very mild) HENT: Yes: Atraumatic, Normocephalic Gastrointestinal: Yes: Soft. No: Distention, Tenderness, Tenderness, Epigastrium Extremities: No: Cool, Cyanosis Integumentary: Yes: Jaundice (very faint). No: Rash Neurological: Yes: Alert, Oriented Labs: CBC, BMP 04/29/17 06:05 04/29/17 06:05 INR, PTT INR 1.69 (0.82-1.09) H 04/29/17 06:05 CMP Sodium 143 mmol/L (136-145) 04/29/17 06:05 Potassium 3.4 mmol/L (3.5-5.1) L 04/29/17 06:05 Chloride 108 mmol/L (98-107) H 04/29/17 06:05 Carbon Dioxide 25 mmol/L (21-32) 04/29/17 06:05 Anion Gap 10 (8-16) 04/29/17 06:05 BUN 22 mg/dL (7-18) H D 04/29/17 06:05 Creatinine 0.8 mg/dL (0.7-1.3) D 04/29/17 06:05 Creat Clearance w eGFR > 60 (>60) 04/29/17 06:05 Random Glucose 114 mg/dL (74-106) H D 04/29/17 06:05 Lactic Acid 1.6 mmol/L (0.0-2.0) 04/28/17 11:55 Calcium 7.9 mg/dL (8.5-10.1) L 04/29/17 06:05 Total Bilirubin 6.9 mg/dL (0.2-1.0) H 04/29/17 06:05 Direct Bilirubin 6.6 mg/dL (0.0-0.2) H 04/28/17 11:11 AST 94 U/L (15-37) H D 04/29/17 06:05 ALT 222 U/L (12-78) H D 04/29/17 06:05 Alkaline Phosphatase 191 U/L (45-117) H D 04/29/17 06:05 Creatine Kinase 124 IU/L (39-308) 04/28/17 11:11 Troponin I < 0.02 ng/ml (0.00-0.05) 04/28/17 11:11 Total Protein 5.3 g/dl (6.4-8.2) L 04/29/17 06:05 Albumin 2.8 g/dl (3.4-5.0) L D 04/29/17 06:05 Total Amylase 263 U/L (25-115) H D 04/29/17 06:05 Lipase 1920 U/L (73-393) H 04/29/17 06:05 am/lip down by about half bili down from 8.6, direct stable K little low INR up from 1.49 wbc down some LFTs coming down - ....Imaging MRI: Report Reviewed, Image Reviewed Problem List - Problems (1) Acute biliary pancreatitis without infection or necrosis Assessment/Plan: probably secondary to sludge or small stones passing in CBD - no CBD blockage on MRCP keep NPO today/generous IV fluids continue to trend labs if they continue to normalize, maybe clears tomorrow pending labs and clinical exam if pain recurs, or labs suggest reobstruction, would consider percutaneous biliary drainage acutely consider correction of INR - ?vitamin K will follow with you Code(s): K85.10 - BILIARY ACUTE PANCREATITIS WITHOUT NECROSIS OR INFECTION (2) Acute cholangitis Assessment/Plan: jaundice fading, no more fevers, labs improving Code(s): K83.0 - CHOLANGITIS (3) Calculus of gallbladder with cholecystitis with biliary obstruction Assessment/Plan: sludge with possibly small stones - labs improving and clinically without pain or tenderness MRCP with cholecystitis, but no ductal stones continue NPO/IVF for today pain meds prn continue antibiotics, ID on board consider hepatitis panel see above - if pain returns or labs suggest reobstruction, would consider percutaneous drainage will follow Code(s): K80.01 - CALCULUS OF GALLBLADDER W ACUTE CHOLECYSTITIS W OBSTRUCTION Qualifiers: Cholecystitis acuity: acute Qualified Code(s): K80.01 - Calculus of gallbladder with acute cholecystitis with obstruction (4) Epigastric abdominal pain Assessment/Plan: resolved - currently without pain or tenderness Code(s): R10.13 - EPIGASTRIC PAIN (5) Aneurysm, aorta, thoracic Assessment/Plan: ok to continue bystolic with sips of water as BP tolerates cardiology also consulted hold aspirin, intervention still possible Code(s): I71.2 - THORACIC AORTIC ANEURYSM, WITHOUT RUPTURE Qualifiers: Presence of rupture: without rupture Qualified Code(s): I71.2 - Thoracic aortic aneurysm, without rupture
[2017-04-29] MEDS: POTASSIUM CHLORIDE 10 MEQ in SODIUM CHLORIDE 100 ML IVPB SCH ×2 (11:54→12:35)
[2017-04-29] MEDS: PIPERACILLIN/TAZOB 4.5 GM 4.5 GM in DEXTROSE 5%-WATER - 100 ML IVPB SCH ×2 (11:55→18:10)
[2017-04-29] MEDS ORDERED: PT OWN MED DRAWER 7, Y5N ONE (16:04)
--- NOTE | 2017-04-29 16:10 | CON.CARD ---
Consult Consult Specialty:: Cardiology Reason for Consultation:: Preop eval - History of Present Illness Chief Complaint: Febrile, jaundice History of Present Illness: This is an 86-year-old male who is being followed for an ascending aortic aneurysm. He presents to the ER with signs and symptoms of acute cholangitis, including: febrile, jaundice, with mild right-sided abdominal tenderness to palpation. CBC reveals leukocytosis with predominance of neutrophils. CMP reveals elevated bilirubin with increased direct fraction, elevated AST/ALTs and alkaline phosphatase. Ultrasound reveals no evidence of acute cholecystitis but presence of biliary sludge. Patient is received IV fluids, acetaminophen for fever control, and IV Zosyn. - Past Medical History Cardio/Vascular: Yes: Aneurysm (ascending aortic aneurysm (4.1 cm per echo )), HTN Gastrointestinal: Yes: Diverticulosis, Other (colonic polyps) - Past Surgical History Past Surgical History: Yes: Cataract Removal (bilateral), Colonoscopy, Hernia Repair (bilateral inguinal, laparoscopic ventral w/associated obstruction 03/17 at [facility]), Upper Endoscopy - Alcohol/Substance Use Hx Alcohol Use: Yes (wine sometimes) History of Substance Use: reports: None - Smoking History Smoking history: Former smoker Have you smoked in the past 12 months: No If you are a former smoker, when did you quit?: 60 yrs ago - Social History Usual Living Arrangement: With Spouse Home Medications - Allergies Allergies/Adverse Reactions: Allergies Allergy/AdvReac Type Severity Reaction Status Date / Time No Known Allergies Allergy Verified 04/28/17 10:32 - Home Medications Home Medications: Ambulatory Orders Furosemide 20 mg PO ASDIR 12/05/14 Nebivolol HCl [Bystolic] 2.5 mg PO DAILY 12/05/14 Aspirin [ASA -] 81 mg PO DAILY 03/01/16 Cholecalciferol (Vitamin D3) [Vitamin D3] 10,000 unit PO DAILY 03/01/16 Folic Acid 1 mg PO DAILY 03/01/16 [place]-3S/Dha/Epa/Fish Oil [Fish Oil 1,200 mg Softgel] 1 each PO DAILY 03/01/16 Vitamin B Complex [B Complex] 1 each PO DAILY 03/01/16 Family Disease History - Family Disease History Family Disease History: CA: Sister ( of pancreatic CA at 50) Review of Systems Findings/Remarks: As per HPI Vital Signs: Vital Signs Temperature 99.1 F 04/29/17 14:00 Pulse Rate 61 04/29/17 14:00 Respiratory Rate 20 04/29/17 14:00 Blood Pressure 113/71 04/29/17 14:00 O2 Sat by Pulse Oximetry (%) 98 04/29/17 09:00 Constitutional: Yes: Well Nourished, No Distress Eyes: Yes: Occular Prosthesis Neck: Yes: WNL Respiratory: Yes: CTA Bilaterally Gastrointestinal: Yes: Soft (RUQ tenderness was noted) Cardiovascular: Yes: Regular Rate and Rhythm (NL S1S2, no MRHG) JVD: No Extremities: Yes: WNL Edema: No Neurological: Yes: Alert, Oriented (Grossly Non focal) - Other Data Labs, Other Data: CBC, BMP 04/29/17 06:05 04/29/17 06:05 INR, PTT INR 1.69 (0.82-1.09) H 04/29/17 06:05 Assessment/Plan PreOp Cardiac Evaluation EKG - NSR with normal intervals, LAD, early transition of V2, and NSSTTW changes. No cardiac symptoms Ascending aortic aneurysm is stable on Nebivolol 2.5 mg PO daily Troponin negative Based on my clinical evaluation, there are no cardiac contraindication to surgery should if be needed. Would continue beta blockers periop.
--- NOTE | 2017-04-29 20:03 | PN ---
GI Progress Note Subjective: patient remain to have abdominal pain, t bili decreased to 6 - Objective Vital Signs: Vital Signs Temperature 98.8 F 04/29/17 17:00 Pulse Rate 64 04/29/17 17:00 Respiratory Rate 18 04/29/17 17:00 Blood Pressure 121/72 04/29/17 17:00 O2 Sat by Pulse Oximetry (%) 98 04/29/17 09:00 Constitutional: Well Nourished Eyes: Yes: Conjunctiva Clear HENT: Yes: Atraumatic Neck: Yes: Supple Cardiovascular: Yes: Regular Rate and Rhythm Respiratory: Yes: CTA Bilaterally ...Palpate: Yes: Soft. No: Firm/Rigid, Guarding, Hepatomegaly, Mass, Pulsatile Mass, Splenomegaly, Tenderness Labs: CBC, BMP 04/29/17 06:05 04/29/17 06:05 INR, PTT INR 1.69 (0.82-1.09) H 04/29/17 06:05 Problem List - Problems (1) Biliary acute pancreatitis Assessment/Plan: associated with acite cholecystitis R> will need IR to evaluate for cholecystostomy continue IV antibiotics Code(s): K85.10 - BILIARY ACUTE PANCREATITIS WITHOUT NECROSIS OR INFECTION
[2017-04-30] MEDS: PIPERACILLIN/TAZOB 4.5 GM 4.5 GM in DEXTROSE 5%-WATER - 100 ML IVPB SCH ×3 (02:59→18:03)
[2017-04-30] MEDS: D5-1/2NS+20 MEQ KCL - 20 MEQ/1,000 ML INFUS.BAG IV SCH ×2 (05:20→17:08)
[2017-04-30 07:08] LABS: BASO % 0.3 % (0-2.0); EOS % 0.9 % (0-4.5); HEMATOCRIT 29.7 % (35.4-49); HEMOGLOBIN 10.3 GM/dL (11.7-16.9); LYMPH % 16.4 % (8-40); MCHC 34.8 g/dl (32.0-35.9); MEAN PLT VOLUME 9.7 fl (7.5-11.1); MONO % 4.7 % (3.8-10.2); NEUT % 77.7 % (42.8-82.8); PLATELET COUNT 111 K/MM3 (134-434); RBC 2.56 M/mm3 (4.00-5.60); WHITE BLOOD COUNT 7.9 K/mm3 (4.0-10.0)
[2017-04-30 07:21] LABS: INR 1.44 (0.82-1.09); PROTHROMBIN TIME (PATIENT) 16.3 SEC (9.98-11.88)
[2017-04-30 07:51] LABS: MCH 40.3 pg (25.7-33.7)
[2017-04-30 08:04] LABS: CHLORIDE 109 mmol/L (98-107); POTASSIUM 3.6 mmol/L (3.5-5.1); SODIUM 143 mmol/L (136-145)
[2017-04-30 08:11] LABS: ALBUMIN 2.9 g/dl (3.4-5.0); ALK PHOS 155 U/L (45-117); AMYLASE 94 U/L (25-115); ANION GAP 7 (8-16); BLOOD UREA NITROGEN 19 mg/dL (7-18); CALCIUM 7.8 mg/dL (8.5-10.1); CO2 27 mmol/L (21-32); CREATININE 0.8 mg/dL (0.7-1.3); GLUCOSE,RANDOM 85 mg/dL (74-106); SGOT/AST 58 U/L (15-37); SGPT/ALT 143 U/L (12-78); TOT PROT 5.4 g/dl (6.4-8.2)
[2017-04-30 08:23] LABS: LIPASE 1124 U/L (73-393)
--- NOTE | 2017-04-30 09:45 | PN ---
Progress Note, Physician History of Present Illness: No acute events overnight. Diarrhea has fully resolved. Patient denies abdominal pain. - Current Medication List Current Medications: Active Medications Potassium Chloride/Dextrose/Sod Cl (D5-1/2ns+20 Meq Kcl -) 20 meq in 1,000 mls @ 125 mls/hr IV ASDIR [facility] Last Admin: 04/30/17 05:20 Dose: 125 mls/hr Vancomycin HCl 1,000 mg/ (Dextrose) 250 mls @ 250 mls/hr IVPB DAILY [facility] PRN Reason: Protocol Metronidazole (Flagyl 500mg Premixed Ivpb -) 500 mg in 100 mls @ 100 mls/hr IVPB Q8H-IV [facility] Last Admin: 04/30/17 01:55 Dose: 100 mls/hr Piperacillin Sod/Tazobactam (Sod 4.5 gm/ Dextrose) 100 mls @ 200 mls/hr IVPB Q8H-IV [facility] PRN Reason: Protocol Last Admin: 04/30/17 02:59 Dose: 200 mls/hr Morphine Sulfate (Morphine Injection -) 1 mg IVPUSH Q4H PRN PRN Reason: PAIN LEVEL 6-10 Nebivolol (Bystolic -) 2.5 mg PO DAILY [facility] Last Admin: 04/29/17 09:11 Dose: Not Given Ursodiol (Actigal -) 300 mg PO BID [facility] Last Admin: 04/29/17 21:22 Dose: 300 mg - Objective Vital Signs: Vital Signs Temperature 98.8 F 04/30/17 05:41 Pulse Rate 65 04/30/17 05:41 Respiratory Rate 20 04/30/17 05:41 Blood Pressure 117/66 04/30/17 05:41 O2 Sat by Pulse Oximetry (%) 96 04/29/17 21:00 Constitutional: Yes: No Distress, Calm Eyes: Yes: Conjunctiva Clear, EOM Intact, Sclera Icterus HENT: Yes: Atraumatic, Normocephalic. No: Thrush Neck: Yes: Supple, Trachea Midline Cardiovascular: Yes: Regular Rate and Rhythm, S1, S2 Respiratory: Yes: Regular, CTA Bilaterally Gastrointestinal: Yes: Normal Bowel Sounds, Soft, Abdomen, Obese, Other. No: Tenderness Edema: No Integumentary: Yes: Jaundice Neurological: Yes: Alert, Oriented Labs: CBC, BMP 04/30/17 06:48 04/30/17 06:48 INR, PTT INR 1.44 (0.82-1.09) H 04/30/17 06:48 Assessment/Plan Assessment: 1. Acute Cholangitis 2. Biliary pancreatitis 3. Acute cholecystitis Plan: 1. Continue Zosyn 4.5g q8h 2. Surgery on board 3. GI on board 4. May need Perc bhargavi, IR has been consulted
--- NOTE | 2017-04-30 09:59 | PN ---
Teaching Attending Note Name of Resident: Won Faith ATTENDING PHYSICIAN STATEMENT I saw and evaluated the patient. I reviewed the resident's note and discussed the case with the resident. I agree with the resident's findings and plan as documented. SUBJECTIVE:Zosyn Asymptomatic OBJECTIVE: ASSESSMENT AND PLAN: Selected Entries 04/30/17 09:53 Temperature 98.2 F Pulse Rate 61 Blood Pressure 114/68 Abd benign Microbiology 04/28/17 11:09 Urine - Urine - Catheterized Urine Culture - Final NO GROWTH OBTAINED 04/28/17 10:43 Blood - Peripheral Venous Blood Culture - Preliminary NO GROWTH OBTAINED AFTER 24 HOURS, INCUBATION TO CONTINUE FOR 4 DAYS. 04/28/17 10:43 Blood - Peripheral Venous Blood Culture - Preliminary NO GROWTH OBTAINED AFTER 24 HOURS, INCUBATION TO CONTINUE FOR 4 DAYS. Laboratory Tests 04/30/17 04/30/17 06:48 06:48 WBC 7.9 D Hgb 10.3 L Hct 29.7 L Plt Count 111 L Creatinine 0.8 Creat Clearance w eGFR > 60 Total Bilirubin 3.0 H D AST 58 H D ALT 143 H D Alkaline Phosphatase 155 H Assessment Cholangitis/ Cholecytitis Plan Continue Zosyn as ordered LIZANDRO Perez MD Problem List - Problems (1) Cholecystitis Code(s): K81.9 - CHOLECYSTITIS, UNSPECIFIED (2) Acute cholangitis Code(s): K83.0 - CHOLANGITIS (3) Biliary acute pancreatitis Code(s): K85.10 - BILIARY ACUTE PANCREATITIS WITHOUT NECROSIS OR INFECTION
[2017-04-30] MEDS: URSODIOL 300 MG CAPSULE PO SCH ×2 (10:16→21:17)
[2017-04-30] MEDS: NEBIVOLOL 5 MG TABLET (FP) PO SCH (10:17)
--- NOTE | 2017-04-30 10:31 | PN ---
Progress Note, Physician Chief Complaint: fever, epigastric pain History of Present Illness: Pt with cholecystitis and biliary pancreatitis with cholangitis and jaundice, seen and examined in bed. No pain currently, no more fevers, no BM yet. Had FFP x2 last night. NPO on IV fluids and antibiotics. Labs still decreasing (LFTs and am/lip, wbc now normal). Possible percutaneous drain planned. - Current Medication List Current Medications: Active Medications Potassium Chloride/Dextrose/Sod Cl (D5-1/2ns+20 Meq Kcl -) 20 meq in 1,000 mls @ 125 mls/hr IV ASDIR [facility] Last Admin: 04/30/17 05:20 Dose: 125 mls/hr Piperacillin Sod/Tazobactam (Sod 4.5 gm/ Dextrose) 100 mls @ 200 mls/hr IVPB Q8H-IV [facility] PRN Reason: Protocol Last Admin: 04/30/17 02:59 Dose: 200 mls/hr Morphine Sulfate (Morphine Injection -) 1 mg IVPUSH Q4H PRN PRN Reason: PAIN LEVEL 6-10 Nebivolol (Bystolic -) 2.5 mg PO DAILY [facility] Last Admin: 04/29/17 09:11 Dose: Not Given Ursodiol (Actigal -) 300 mg PO BID [facility] Last Admin: 04/29/17 21:22 Dose: 300 mg - Objective Vital Signs: Vital Signs Temperature 98.2 F 04/30/17 09:53 Pulse Rate 61 04/30/17 09:53 Respiratory Rate 18 04/30/17 09:53 Blood Pressure 114/68 04/30/17 09:53 O2 Sat by Pulse Oximetry (%) 96 04/29/17 21:00 Constitutional: Yes: Well Nourished, No Distress, Calm Eyes: Yes: EOM Intact, Sclera Icterus (fading, very mild) HENT: Yes: Atraumatic, Normocephalic Gastrointestinal: Yes: Soft. No: Distention, Hernia, Tenderness Extremities: No: Cool, Cyanosis Integumentary: No: Jaundice (essentially faded from skin), Rash Neurological: Yes: Alert, Oriented Labs: CBC, BMP 04/30/17 06:48 04/30/17 06:48 INR, PTT INR 1.44 (0.82-1.09) H 03/02/18 06:48 CMP Sodium 143 mmol/L (136-145) 04/30/17 06:48 Potassium 3.6 mmol/L (3.5-5.1) 04/30/17 06:48 Chloride 109 mmol/L (98-107) H 04/30/17 06:48 Carbon Dioxide 27 mmol/L (21-32) 04/30/17 06:48 Anion Gap 7 (8-16) L 04/30/17 06:48 BUN 19 mg/dL (7-18) H 04/30/17 06:48 Creatinine 0.8 mg/dL (0.7-1.3) 04/30/17 06:48 Creat Clearance w eGFR > 60 (>60) 04/30/17 06:48 Random Glucose 85 mg/dL (74-106) D 04/30/17 06:48 Calcium 7.8 mg/dL (8.5-10.1) L 04/30/17 06:48 Total Bilirubin 3.0 mg/dL (0.2-1.0) H D 04/30/17 06:48 AST 58 U/L (15-37) H D 04/30/17 06:48 ALT 143 U/L (12-78) H D 04/30/17 06:48 Alkaline Phosphatase 155 U/L (45-117) H 04/30/17 06:48 Total Protein 5.4 g/dl (6.4-8.2) L 04/30/17 06:48 Albumin 2.9 g/dl (3.4-5.0) L 04/30/17 06:48 Total Amylase 94 U/L (25-115) D 04/30/17 06:48 Lipase 1124 U/L (73-393) H 04/30/17 06:48 wbc down to normal am/lip and LFTs down, bili down from 6 INR down a little Problem List - Problems (1) Acute biliary pancreatitis without infection or necrosis Assessment/Plan: probably secondary to sludge or small stones passing in CBD - no CBD blockage on MRCP keep NPO today/generous IV fluids continue to trend labs patient will need cholecystectomy for definitive management of biliary pancreatitis, or it is likely to recur perc drainage of gallbladder would not address cbd/pancreatic risk and labs normalizing, so biliary obstruction has likely cleared Discussed with patient risks, benefits and alternatives of laparoscopic possible open cholecystectomy, including but not limited to bleeding, infection , injury to adjacent structures, bile leak or ductal injury, hernia, intraabdominal abscess, need for further procedures, ; alternatives include antibiotics, delayed or no surgery - risks of this include recurrence of pancreatitis, cholecystitis, cholangitis, sepsis, . The patient's age and ascending aortic aneurysm may pose an additional risk in the perioperative period - consideration should be given to whether surgery is better undertaken at a facility with cardiac surgery capabilities, which are not available here. By report, it is stable, but recommend cardiology or other evaluation to address risk level and allow patient to decide where he would want to pursue operation. If patient and team ultimately desire to have surgery here, would add on for today and have patient sign informed consent. Discussed with Dr. Ingram Code(s): K85.10 - BILIARY ACUTE PANCREATITIS WITHOUT NECROSIS OR INFECTION (2) Acute cholangitis Assessment/Plan: resolving Code(s): K83.0 - CHOLANGITIS (3) Calculus of gallbladder with cholecystitis with biliary obstruction Assessment/Plan: see above consider vitamin K Code(s): K80.01 - CALCULUS OF GALLBLADDER W ACUTE CHOLECYSTITIS W OBSTRUCTION Qualifiers: Cholecystitis acuity: acute Qualified Code(s): K80.01 - Calculus of gallbladder with acute cholecystitis with obstruction (4) Aneurysm, aorta, thoracic Assessment/Plan: ok to continue bystolic with sips of water as BP tolerates cardiology on board - see above hold aspirin need to determine if aneurysm poses perioperative risk enough to warrant doing cholecystectomy at facility with cardiothoracic surgery Code(s): I71.2 - THORACIC AORTIC ANEURYSM, WITHOUT RUPTURE Qualifiers: Presence of rupture: without rupture Qualified Code(s): I71.2 - Thoracic aortic aneurysm, without rupture
--- NOTE | 2017-04-30 10:51 | PN ---
Progress Note, Physician - Current Medication List Current Medications: Active Medications Potassium Chloride/Dextrose/Sod Cl (D5-1/2ns+20 Meq Kcl -) 20 meq in 1,000 mls @ 125 mls/hr IV ASDIR [facility] Last Admin: 04/30/17 05:20 Dose: 125 mls/hr Piperacillin Sod/Tazobactam (Sod 4.5 gm/ Dextrose) 100 mls @ 200 mls/hr IVPB Q8H-IV [facility] PRN Reason: Protocol Last Admin: 04/30/17 10:19 Dose: 200 mls/hr Morphine Sulfate (Morphine Injection -) 1 mg IVPUSH Q4H PRN PRN Reason: PAIN LEVEL 6-10 Nebivolol (Bystolic -) 2.5 mg PO DAILY [facility] Last Admin: 04/30/17 10:17 Dose: 2.5 mg Ursodiol (Actigal -) 300 mg PO BID [facility] Last Admin: 04/30/17 10:16 Dose: 300 mg - Objective Vital Signs: Vital Signs Temperature 98.2 F 04/30/17 09:53 Pulse Rate 61 04/30/17 09:53 Respiratory Rate 18 04/30/17 09:53 Blood Pressure 114/68 04/30/17 09:53 O2 Sat by Pulse Oximetry (%) 96 04/29/17 21:00 Cardiovascular: Yes: Regular Rate and Rhythm Respiratory: Yes: Regular, CTA Bilaterally Gastrointestinal: Yes: Normal Bowel Sounds, Soft. No: Tenderness Labs: CBC, BMP 04/30/17 06:48 04/30/17 06:48 INR, PTT INR 1.44 (0.82-1.09) H 04/30/17 06:48 Problem List - Problems (1) Acute cholangitis Assessment/Plan: IV ABX ID/GI/SURGERY ON BOARD IVF NPO FOLLOW LABS CHOLECYSTOSTOMY TODAY Code(s): K83.0 - CHOLANGITIS (2) Biliary acute pancreatitis Assessment/Plan: ABOVE Code(s): K85.10 - BILIARY ACUTE PANCREATITIS WITHOUT NECROSIS OR INFECTION (3) Cholelithiasis with cholangitis with biliary obstruction Assessment/Plan: ABOVE Code(s): K80.21 - CALCULUS OF GALLBLADDER W/O CHOLECYSTITIS WITH OBSTRUCTION; K83.0 - CHOLANGITIS Qualifiers: Cholelithiasis location: bile duct Cholangitis acuity: acute Qualified Code(s): K80.33 - Calculus of bile duct with acute cholangitis with obstruction (4) Aneurysm, aorta, thoracic Assessment/Plan: STABLE Code(s): I71.2 - THORACIC AORTIC ANEURYSM, WITHOUT RUPTURE Qualifiers: Presence of rupture: without rupture Qualified Code(s): I71.2 - Thoracic aortic aneurysm, without rupture (5) Hypertension Assessment/Plan: MONITOR ON CURRENT MEDS Code(s): I10 - ESSENTIAL (PRIMARY) HYPERTENSION Qualifiers: Hypertension type: essential hypertension Qualified Code(s): I10 - Essential (primary) hypertension
--- NOTE | 2017-04-30 17:27 | PN ---
Progress Note, Physician History of Present Illness: Patient continues to have no abdominal pain, his liver enzymes are markedly improved. Patient scheduled for cholecystectomy in the morning. - Current Medication List Current Medications: Active Medications Potassium Chloride/Dextrose/Sod Cl (D5-1/2ns+20 Meq Kcl -) 20 meq in 1,000 mls @ 125 mls/hr IV ASDIR [facility] Last Admin: 04/30/17 17:08 Dose: 125 mls/hr Piperacillin Sod/Tazobactam (Sod 4.5 gm/ Dextrose) 100 mls @ 200 mls/hr IVPB Q8H-IV [facility] PRN Reason: Protocol Last Admin: 04/30/17 10:19 Dose: 200 mls/hr Morphine Sulfate (Morphine Injection -) 1 mg IVPUSH Q4H PRN PRN Reason: PAIN LEVEL 6-10 Nebivolol (Bystolic -) 2.5 mg PO DAILY [facility] Last Admin: 04/30/17 10:17 Dose: 2.5 mg Ursodiol (Actigal -) 300 mg PO BID [facility] Last Admin: 04/30/17 10:16 Dose: 300 mg - Objective Vital Signs: Vital Signs Temperature 98.3 F 04/30/17 14:27 Pulse Rate 55 L 04/30/17 14:27 Respiratory Rate 18 04/30/17 09:53 Blood Pressure 110/63 04/30/17 14:27 O2 Sat by Pulse Oximetry (%) 97 04/30/17 09:00 Constitutional: Yes: Well Nourished Eyes: Yes: Conjunctiva Clear HENT: Yes: Atraumatic Cardiovascular: Yes: Regular Rate and Rhythm Respiratory: Yes: CTA Bilaterally Gastrointestinal: Yes: Normal Bowel Sounds, Soft. No: Tenderness, Epigastrium, Tenderness, Rebound, Vomiting Labs: CBC, BMP 04/30/17 06:48 04/30/17 06:48 INR, PTT INR 1.44 (0.82-1.09) H 04/30/17 06:48 Problem List - Problems (1) Cholecystitis Assessment/Plan: resolving Recommendation 1. continue Actigall 300mg BID 2. advance diet as per surgery 3. recall as necessary Code(s): K81.9 - CHOLECYSTITIS, UNSPECIFIED
[2017-04-30] MEDS ORDERED: PT OWN MED DRAWER 7, Y5N ONE (17:51)
[2017-05-01] MEDS: PIPERACILLIN/TAZOB 4.5 GM 4.5 GM in DEXTROSE 5%-WATER - 100 ML IVPB SCH ×3 (01:02→17:48)
[2017-05-01] MEDS: D5-1/2NS+20 MEQ KCL - 20 MEQ/1,000 ML INFUS.BAG IV SCH (03:27)
[2017-05-01] MEDS: NEBIVOLOL 5 MG TABLET (FP) PO SCH (09:55)
--- NOTE | 2017-05-01 10:02 | PN ---
Progress Note, Physician - Current Medication List Current Medications: Active Medications Potassium Chloride/Dextrose/Sod Cl (D5-1/2ns+20 Meq Kcl -) 20 meq in 1,000 mls @ 125 mls/hr IV [facility]IR [facility] Last Admin: 05/01/17 03:27 Dose: 125 mls/hr Piperacillin Sod/Tazobactam (Sod 4.5 gm/ Dextrose) 100 mls @ 200 mls/hr IVPB Q8H-IV [facility] PRN Reason: Protocol Last Admin: 05/01/17 09:56 Dose: 200 mls/hr Morphine Sulfate (Morphine Injection -) 1 mg IVPUSH Q4H PRN PRN Reason: PAIN LEVEL 6-10 Nebivolol (Bystolic -) 2.5 mg PO DAILY [facility] Last Admin: 05/01/17 09:55 Dose: 2.5 mg - Objective Vital Signs: Vital Signs Temperature 98.1 F 05/01/17 07:49 Pulse Rate 51 L 05/01/17 07:49 Respiratory Rate 20 05/01/17 07:49 Blood Pressure 109/61 05/01/17 07:49 O2 Sat by Pulse Oximetry (%) 96 04/30/17 21:00 Cardiovascular: Yes: Regular Rate and Rhythm Respiratory: Yes: Regular, CTA Bilaterally Gastrointestinal: Yes: Normal Bowel Sounds, Soft Labs: CBC, BMP 04/30/17 06:48 04/30/17 06:48 INR, PTT INR 1.44 (0.82-1.09) H 04/30/17 06:48 Problem List - Problems (1) Acute cholangitis Assessment/Plan: IV ABX ID/GI/SURGERY ON BOARD IVF NPO FOLLOW LABS CHOLECYSTECTOMY TODAY Code(s): K83.0 - CHOLANGITIS (2) Biliary acute pancreatitis Assessment/Plan: ABOVE Code(s): K85.10 - BILIARY ACUTE PANCREATITIS WITHOUT NECROSIS OR INFECTION (3) Cholelithiasis with cholangitis with biliary obstruction Assessment/Plan: ABOVE Code(s): K80.21 - CALCULUS OF GALLBLADDER W/O CHOLECYSTITIS WITH OBSTRUCTION; K83.0 - CHOLANGITIS Qualifiers: Cholelithiasis location: bile duct Cholangitis acuity: acute Qualified Code(s): K80.33 - Calculus of bile duct with acute cholangitis with obstruction (4) Aneurysm, aorta, thoracic Assessment/Plan: STABLE CT NOTED--NO SIGNIFICANT CHANGE Code(s): I71.2 - THORACIC AORTIC ANEURYSM, WITHOUT RUPTURE Qualifiers: Presence of rupture: without rupture Qualified Code(s): I71.2 - Thoracic aortic aneurysm, without rupture (5) Hypertension Assessment/Plan: MONITOR ON CURRENT MEDS Code(s): I10 - ESSENTIAL (PRIMARY) HYPERTENSION Qualifiers: Hypertension type: essential hypertension Qualified Code(s): I10 - Essential (primary) hypertension
[2017-05-01] MEDS ORDERED: oxyCODONE HCL 5 MG TABLET PO PRN ×3 (11:22→14:03)
[2017-05-01] MEDS ORDERED: ONDANSETRON 4 MG/2 ML VIAL IVPUSH PRN ×2 (11:22→14:03)
[2017-05-01 11:23] LABS: BASO % 0.6 % (0-2.0); EOS % 1.2 % (0-4.5); HEMATOCRIT 30.3 % (35.4-49); HEMOGLOBIN 10.4 GM/dL (11.7-16.9); LYMPH % 22.6 % (8-40); MCH 39.7 pg (25.7-33.7); MCHC 34.3 g/dl (32.0-35.9); MEAN CELL VOLUME 115.7 fl (80-96); MEAN PLT VOLUME 9.8 fl (7.5-11.1); MONO % 6.7 % (3.8-10.2); NEUT % 68.9 % (42.8-82.8); PLATELET COUNT 127 K/MM3 (134-434); RBC 2.62 M/mm3 (4.00-5.60); RDW 20.1 % (11.9-15.9); WHITE BLOOD COUNT 5.9 K/mm3 (4.0-10.0)
[2017-05-01 11:26] LABS: INR 1.52 (0.82-1.09); PROTHROMBIN TIME (PATIENT) 17.2 SEC (9.98-11.88)
[2017-05-01] MEDS ORDERED: LACTATED RINGERS SOLUTION 1,000 ML IV SCH (11:30)
[2017-05-01] MEDS ORDERED: MIDAZOLAM HCL 2 MG/2 ML SINGLE DOSE VIAL ONE (11:38)
[2017-05-01 11:42] LABS: ALBUMIN 2.6 g/dl (3.4-5.0); ANION GAP 10 (8-16); BILIRUBIN,TOTAL 2.2 mg/dL (0.2-1.0); BLOOD UREA NITROGEN 15 mg/dL (7-18); CALCIUM 8.2 mg/dL (8.5-10.1); CHLORIDE 107 mmol/L (98-107); CO2 24 mmol/L (21-32); CREATININE 0.8 mg/dL (0.7-1.3); GLUCOSE,RANDOM 118 mg/dL (74-106); SGOT/AST 34 U/L (15-37); SGPT/ALT 105 U/L (12-78); SODIUM 141 mmol/L (136-145); TOT PROT 5.4 g/dl (6.4-8.2)
[2017-05-01 11:43] LABS: ALK PHOS 135 U/L (45-117)
[2017-05-01] MEDS ORDERED: ePHEDrine SULFATE 50 MG/1 ML AMPULE ONE (11:58)
[2017-05-01] MEDS ORDERED: ROCURONIUM BROMIDE 50 MG/5 ML VIAL ONE (12:02)
[2017-05-01] MEDS ORDERED: PROPOFOL 20 ML ONE ×2 (12:02)
[2017-05-01] MEDS ORDERED: KETOROLAC TROMETHAMINE 30 MG/1 ML VIAL ONE (12:03)
[2017-05-01] MEDS ORDERED: DEXAMETHASONE SOD PHOSPHATE 4 MG/1 ML VIAL ONE (12:03)
[2017-05-01] MEDS ORDERED: LIDOCAINE HCL/PF 2% SDV 5ML VIAL ONE (12:03)
[2017-05-01 12:04] LABS: LIPASE 433 U/L (73-393)
[2017-05-01] MEDS ORDERED: NEOSTIGMINE METHYLSULFATE 0.5 MG/ML - 10 ML MDV ONE (12:06)
[2017-05-01] MEDS ORDERED: GLYCOPYRROLATE 0.2 MG/1 ML VIAL ONE (12:07)
[2017-05-01] MEDS ORDERED: METOPROLOL TARTRATE 5 MG/5 ML VIAL ONE ×2 (12:07→12:18)
[2017-05-01] MEDS ORDERED: hydrALAZINE HCL 20 MG/ML VIAL ONE (12:33)
[2017-05-01] MEDS ORDERED: SODIUM CHLORIDE 0.9% P/F 10 ML VIAL IJ ONE (12:33)
[2017-05-01] MEDS ORDERED: BUPIVACAINE HCL/PF 0.5% (5MG/ML) 10 ML VIAL ONE (13:02)
[2017-05-01] MEDS ORDERED: BUPIVACAINE HCL/PF 0.5% (5MG/ML) 10 ML VIAL IJ ONE (13:27)
--- NOTE | 2017-05-01 13:36 | OP ---
Operative Note - Note: Operative Date: 05/01/17 Pre-Operative Diagnosis: biliary pancreatitis, cholecystitis with cholangitis Operation: laparoscopic cholecystectomy Findings: subxiphoid Giovanni entry, supraumbilical port above previous mesh repair, critical view identified, XL Weck clips used on duct and artery Post-Operative Diagnosis: Same as Pre-op Surgeon: Regis Hickman Smocker: Ras Anderson Anesthesiologist/CHAIR AND COUCH MAKER: Jeremy Gr Anesthesia: General, Local (10ml 0.5% marcaine) Specimens Removed: gallbladder to pathology Estimated Blood Loss (mls): 10 Fluid Volume Replaced (mls): 800 (crystalloid) Operative Report Dictated: Yes
[2017-05-01] MEDS ORDERED: ACETAMINOPHEN 325 MG TABLET (FP) PO PRN ×2 (13:37→14:03)
[2017-05-01] MEDS: LACTATED RINGERS SOLUTION 1,000 ML IV SCH ×2 (14:47→14:53)
[2017-05-01] MEDS: ENOXAPARIN NA (PORCINE) 30 MG/0.3 ML DISP.SYRIN SQ SCH (14:59)
[2017-05-01] MEDS ORDERED: ENOXAPARIN NA (PORCINE) 30 MG/0.3 ML DISP.SYRIN SQ SCH (15:00)
[2017-05-01] MEDS ORDERED: PHYTONADIONE 10 MG/1 ML AMP SQ ONE ×2 (15:00)
[2017-05-02] MEDS: PIPERACILLIN/TAZOB 4.5 GM 4.5 GM in DEXTROSE 5%-WATER - 100 ML IVPB SCH ×3 (03:00→17:02)
[2017-05-02] MEDS: ENOXAPARIN NA (PORCINE) 30 MG/0.3 ML DISP.SYRIN SQ SCH (09:37)
[2017-05-02] MEDS: NEBIVOLOL 2.5 MG TABLET (FP) PO SCH (09:37)
--- NOTE | 2017-05-02 12:05 | PN ---
Progress Note (short form) - Note Progress Note: Pt s/p lap bhargavi for biliary pancreatitis and cholecystitis with cholangitis, feeling well. Seen and examined sitting up in chair. Reports mild dizziness and nausea when first got up to chair before breakfast, but it passed. Had good breakfast, has voided and been to bathroom. Passing gas but no BM yet. Using IS with excellent effort, near 2000ml. No pain, no pain meds. Physical therapy just here to see. Antibiotic just finished. Vital Signs Period Temp Pulse Resp BP Sys/Shipley Pulse Ox Last 24 Hr 97.7 F-98.8 F 57-77 14-20 82-125/41-67 92-99 PE: A&O, sitting in chair No scleral icterus, no jaundice No oxygen, excellent effort on IS, no SOB Abdomen soft, obese, minimally tender at upper incisions, dressings c/d/i No edema or cyanosis no new labs A/P: POD1 s/p laparoscopic cholecystectomy doing well tolerating diet, voiding, able to ambulate PT seeing to evaluate if safe for d/c home re: ambulation and stairs Tylenol prn for pain, no narcotics needed ok for d/c home and f/u in 2 weeks (pt to call for appt) when cleared by PT instructions in d/c plan Problem List - Problems (1) Acute biliary pancreatitis without infection or necrosis Code(s): K85.10 - BILIARY ACUTE PANCREATITIS WITHOUT NECROSIS OR INFECTION (2) Acute cholangitis Assessment/Plan: resolved Code(s): K83.0 - CHOLANGITIS (3) Calculus of gallbladder with cholecystitis with biliary obstruction Code(s): K80.01 - CALCULUS OF GALLBLADDER W ACUTE CHOLECYSTITIS W OBSTRUCTION Qualifiers: Cholecystitis acuity: acute Qualified Code(s): K80.01 - Calculus of gallbladder with acute cholecystitis with obstruction (4) Aneurysm, aorta, thoracic Assessment/Plan: stable by imaging at least 10 years continue bystolic may resume baby asa daily on Sunday 05/07 Code(s): I71.2 - THORACIC AORTIC ANEURYSM, WITHOUT RUPTURE Qualifiers: Presence of rupture: without rupture Qualified Code(s): I71.2 - Thoracic aortic aneurysm, without rupture
--- NOTE | 2017-05-02 14:23 | OP ---
DATE OF OPERATION: 05/01/2017 PREOPERATIVE DIAGNOSIS: Biliary pancreatitis and cholecystitis with cholangitis. POSTOPERATIVE DIAGNOSIS: Biliary pancreatitis and cholecystitis with cholangitis. PROCEDURE PERFORMED: Laparoscopic cholecystectomy. SURGEON: Regis Hickman MD MISSION WORKER: Ras Anderson MD ANESTHESIA: General endotracheal and local 10 mL of 0.5% Marcaine. ESTIMATED BLOOD LOSS: 10 mL. FLUIDS: 800 mL of crystalloid. SPECIMEN: Gallbladder to Pathology. FINDINGS: We used a subxiphoid Giovanni entry. The supraumbilical port was placed under direct vision above the previous mesh repair. The critical view was identified and extra-large Weck clips were used on the duct and artery. DISPOSITION: Stable and extubated to PACU. 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 He was brought to the emergency room by EMS, noted to have a fever with a rectal temperature of 103, white count of 16,000, with elevated liver function tests including a bilirubin of 8, mildly elevated BUN and creatinine and INR, a negative urinalysis, and an ultrasound which showed a gallbladder with sludge but no stones, and no signs of biliary ductal dilation or clear cholecystitis. He was given IV fluids, kept n.p.o., started on antibiotics, and Surgery was consulted for cholangitis. Amylase and lipase were then checked and noted to be high at almost 500 and 4670, consistent with biliary pancreatitis, and GI was also consulted. The patient had an MRCP, which showed no evidence of common bile duct obstruction or dilation. It did show evidence of mild pancreatitis and cholecystitis. He was continued on antibiotics with ID on board. Cardiology was consulted, who was able to see him and indicate that he had no specific cardiac contraindications to a surgical procedure should he need one, nor any additional testing or intervention prior to that. He was continued on IV fluids and n.p.o. status. His pain and tenderness entirely resolved very quickly. His liver functions and amylase and lipase began normalizing slowly, and yesterday, just to be on the safe side, as the last imaging of his thoracic aorta had been 3 years prior, he underwent a non-contrast CT scan of the chest to essentially prove its stability, which again showed numbers similar to what it had been both 3 years and 10 years prior. Risks, benefits, and alternatives of laparoscopic, possible open cholecystectomy, were discussed with the patient, including but not limited to bleeding, infection, injury to adjacent structures, bile leak or ductal injury, hernia, intraabdominal abscess, need for further procedures, and alternatives inclusive of antibiotics and delayed or no surgery with attendant risk of recurrence of pancreatitis, cholecystitis, cholangitis, sepsis, or . He does desire to proceed with operation, and informed consent was signed. The patient is now brought to the operating room for this procedure. OPERATIVE TECHNIQUE: The patient was brought to the operating room and laid supine on the operating table. Sequential compression devices were applied to bilateral lower extremities, and as his treatment antibiotics had been given on time, with the last dose shortly prior, no additional antibiotics were given in the operating room. He also had his regularly scheduled beta moses this morning with a few sips of water. Aspirin has been held since he entered the hospital. After induction and intubation by Anesthesia, the patient's abdomen was prepped and draped in sterile fashion. A short subxiphoid midline incision was made with a scalpel and carried into subcutaneous tissues with electrocautery. This went through a small prior scar. The abdominal wall fascia was identified, scored and elevated with Davida clamps. The peritoneum was entered bluntly with the tip of a clamp, and then a fingertip used to ensure entry into the abdominal cavity, and the absence of any underlying adhesions. We tried to stay to the right side of the falciform ligament, and a stay stitch of 0 Vicryl was placed in the fascia for later closure in [id number] fashion, after which the Giovanni trocar was introduced directly into the abdominal cavity and secured in place with the balloon. A 5- mm 30-degree laparoscope was inserted to inspect the abdominal cavity, after insufflating the abdomen with carbon dioxide, and the patient's umbilical area inspected to reveal some adhesions of omentum and one loop of bowel off to the side, tented up to the anterior abdominal wall in this location. In a couple of spots, the tacks and edges of the previously placed mesh were visible. This was a small circular mesh that had been placed the prior year laparoscopically. An additional 5-mm port was placed under direct vision in the right upper quadrant laterally and the camera moved to that port to facilitate visualization of these adhesions, while cold and hot scissors were used from the subxiphoid port to take down just a very short distance of an avascular plane and some omental adhesions just at the superior aspect of the mesh, to ensure that we could clearly see the border edge of the mesh to place the next 5-mm port. Once this had been accomplished, a 5-mm port was placed under direct visualization supraumbilically, so that the tip came out just above the clear edge of the previously-placed mesh, and the camera was returned to this port for the duration of the operation. An additional 5-mm port was then also placed in the right upper quadrant, and 2 graspers were used through the right upper quadrant ports, one to grasp the fundus of the gallbladder and elevate it over the liver edge, after the patient was placed in reverse Trendelenburg position with right side plane somewhat upward. The 2nd grasper was used to grasp the infundibulum of the gallbladder and retract it laterally. The base of the gallbladder was clearly visible at this point, and a [place] dissector used from the subxiphoid port to begin dissecting the peritoneum and fat away from the base of the gallbladder to reveal the cystic duct and cystic artery. The cystic duct quickly came into view and was identified clearly in the critical view as the only structure entering the gallbladder from both medial and lateral sides, with a complete window around the isolated cystic duct. The structure that was thought to be the cystic artery appeared to be thin, just medial to the duct, but could not be fully isolated until the cystic duct was clipped, thus extra- large Weck clips were then introduced and used to clip the cystic duct, 2 proximally and 1 distally. It was then divided with Endo scissors, and the [place] again used to delineate the thin fibrous-looking structure behind it. After careful inspection, this was determined to be strictly a strand of peritoneal tissue, and the cystic artery was actually more clearly identified behind it, to the medial aspect, back in some of the fat below where the lymph node had been. The suction rehabilitation director was used briefly to irrigate and suction the area clear of some fluid and blood clot, and as the cystic artery clearly came into view, the anterior peritoneal tissue was bluntly, and the cystic artery was clearly isolated with the [place] dissector. The extra-large Weck clips were then also introduced and used to clip the artery, 2 proximally and 1 distally, and divide it with Endo scissors between. The stump was noted to pulsate gently. The hook cautery was then used to begin and continue taking the gallbladder off of the liver bed. Once this had been fully up at the top edge of the liver, it was temporarily set aside at the upper portion of the liver, and the operative field reinspected for hemostasis. It was irrigated and suctioned clear of fluid and some blood clot, and there was no active bleeding noted. The EndoCatch bag was introduced through the subxiphoid port, and the gallbladder placed in it and retrieved out this location, with the port then returned to the subxiphoid site, and the abdomen re-insufflated with carbon dioxide, after the gallbladder was removed. The camera was then actually briefly switched to the right upper quadrant port again, and used to visualize the area under the umbilicus and immediately below that on the omentum down in the abdominal cavity. A small area of blood clot was then retrieved and suctioned with the suction rehabilitation director tool, and fluid was again suctioned from over the edge of the liver. Hemostasis was noted to be complete at both locations. The right upper quadrant ports and Giovanni in the subxiphoid location were then all removed under direct vision. The abdomen was exsufflated of carbon dioxide, and the camera and last 5-mm port above the umbilicus were also removed. The stay suture at the subxiphoid port was tied to close the fascia there. Hemostasis was achieved in the port sites with electrocautery where necessary. Local anesthetic was infiltrated into all the port sites, and skin was closed with 4-0 Vicryl subcuticular sutures, including a running at the subxiphoid site. Benzoin and Steri-Strips were then applied to each incision, which were covered with dressings of gauze and Tegaderm. Counts were correct at the end of the procedure. The patient was then awakened and extubated by Anesthesia. He was moved to a stretcher and taken back to the recovery room in stable condition, having tolerated the procedure well. Dr. Anderson was an essential dental laboratory assistant throughout the procedure, including assistance with entry into the abdominal cavity, camera manipulation while placing the supraumbilical port and taking down adhesions, grasping and manipulation of the gallbladder throughout the case, and assistance with skin closure at the end. Regis Hickman M.D. ANDREIA/[id number] MTDD
--- NOTE | 2017-05-02 14:53 | PN ---
Progress Note, Physician History of Present Illness: POD #1 laparoscopic cholecystectomy No c/o abdominal pain Tolerating diet No c/o fever/ chills WBC WNL BC (-) - Current Medication List Current Medications: Active Medications Acetaminophen (Tylenol -) 650 mg PO Q6H PRN PRN Reason: PAIN Enoxaparin Sodium (Lovenox -) 30 mg SQ DAILY [facility] Last Admin: 05/02/17 09:37 Dose: 30 mg Piperacillin Sod/Tazobactam (Sod 4.5 gm/ Dextrose) 100 mls @ 200 mls/hr IVPB Q8H-IV [facility] PRN Reason: Protocol Last Admin: 05/02/17 09:35 Dose: 200 mls/hr Nebivolol (Bystolic -) 2.5 mg PO DAILY [facility] Last Admin: 05/02/17 09:37 Dose: 2.5 mg Ondansetron HCl (Zofran Injection) 4 mg IVPUSH Q6H PRN PRN Reason: NAUSEA AND/OR VOMITING - Objective Vital Signs: Vital Signs Temperature 98.2 F 05/02/17 14:05 Pulse Rate 54 L 05/02/17 14:05 Respiratory Rate 18 05/02/17 14:05 Blood Pressure 119/72 05/02/17 14:05 O2 Sat by Pulse Oximetry (%) 94 L 05/02/17 08:00 Constitutional: Yes: No Distress Cardiovascular: Yes: Regular Rate and Rhythm, S1, S2 Respiratory: Yes: Other (+ crepitations at bases bilaterally) Gastrointestinal: Yes: Normal Bowel Sounds, Soft, Tenderness, Other (mild RUQ tenderness) Edema: Yes Edema: LLE: 1+, RLE: 1+ Labs: CBC, BMP 05/01/17 10:35 05/01/17 10:35 INR, PTT INR 1.52 (0.82-1.09) H 05/01/17 10:35 Assessment/Plan POD #1 laparoscopic cholecystectomy S/P acute cholecystitis/ biliary pancreatitis Continue antibiotics additional 24hr
--- NOTE | 2017-05-02 17:53 | PN ---
Progress Note, Physician Chief Complaint: S/P Choley History of Present Illness: NAD, walking with needs PT eval seen by Surgery - Current Medication List Current Medications: Active Medications Acetaminophen (Tylenol -) 650 mg PO Q6H PRN PRN Reason: PAIN Enoxaparin Sodium (Lovenox -) 30 mg SQ DAILY [facility] Last Admin: 05/02/17 09:37 Dose: 30 mg Piperacillin Sod/Tazobactam (Sod 4.5 gm/ Dextrose) 100 mls @ 200 mls/hr IVPB Q8H-IV [facility] PRN Reason: Protocol Last Admin: 05/02/17 17:02 Dose: 200 mls/hr Nebivolol (Bystolic -) 2.5 mg PO DAILY [facility] Last Admin: 05/02/17 09:37 Dose: 2.5 mg Ondansetron HCl (Zofran Injection) 4 mg IVPUSH Q6H PRN PRN Reason: NAUSEA AND/OR VOMITING - Objective Vital Signs: Vital Signs Temperature 98.2 F 05/02/17 14:05 Pulse Rate 54 L 05/02/17 14:05 Respiratory Rate 18 05/02/17 14:05 Blood Pressure 119/72 05/02/17 14:05 O2 Sat by Pulse Oximetry (%) 94 L 05/02/17 08:00 Constitutional: Yes: Well Nourished, No Distress, Calm Cardiovascular: Yes: Regular Rate and Rhythm Respiratory: Yes: Regular Gastrointestinal: Yes: Normal Bowel Sounds, Soft Neurological: Yes: Alert, Oriented Psychiatric: Yes: Alert, Oriented Labs: CBC, BMP 05/01/17 10:35 05/01/17 10:35 INR, PTT INR 1.52 (0.82-1.09) H 05/01/17 10:35 Problem List - Problems (1) Cholecystitis Assessment/Plan: _IV abx -seen by surgery -pain management -to be seen by PT Code(s): K81.9 - CHOLECYSTITIS, UNSPECIFIED
[2017-05-03] MEDS: PIPERACILLIN/TAZOB 4.5 GM 4.5 GM in DEXTROSE 5%-WATER - 100 ML IVPB SCH ×2 (02:30→10:28)
[2017-05-03 05:48] VITALS: TEMP 98.7
[2017-05-03 07:06] LABS: BASO % 0.5 % (0-2.0); EOS % 3.9 % (0-4.5); HEMATOCRIT 34.1 % (35.4-49); HEMOGLOBIN 11.9 GM/dL (11.7-16.9); LYMPH % 22.2 % (8-40); MEAN CELL VOLUME 116.3 fl (80-96); MEAN PLT VOLUME 10.5 fl (7.5-11.1); NEUT % 68.4 % (42.8-82.8); PLATELET COUNT 164 K/MM3 (134-434); RBC 2.93 M/mm3 (4.00-5.60); RDW 20.3 % (11.9-15.9); WHITE BLOOD COUNT 9.2 K/mm3 (4.0-10.0)
--- NOTE | 2017-05-03 07:13 | PN ---
Progress Note, Physician Chief Complaint: s/p lap cholecystectomy under general anesthesia History of Present Illness: post op day one, - Current Medication List Current Medications: Active Medications Acetaminophen (Tylenol -) 650 mg PO Q6H PRN PRN Reason: PAIN Last Admin: 05/02/17 11:00 Dose: 650 mg Enoxaparin Sodium (Lovenox -) 30 mg SQ DAILY [facility] Last Admin: 05/02/17 09:37 Dose: 30 mg Piperacillin Sod/Tazobactam (Sod 4.5 gm/ Dextrose) 100 mls @ 200 mls/hr IVPB Q8H-IV [facility] PRN Reason: Protocol Last Admin: 05/03/17 02:30 Dose: 200 mls/hr Nebivolol (Bystolic -) 2.5 mg PO DAILY [facility] Last Admin: 05/02/17 09:37 Dose: 2.5 mg Ondansetron HCl (Zofran Injection) 4 mg IVPUSH Q6H PRN PRN Reason: NAUSEA AND/OR VOMITING - Objective Vital Signs: Vital Signs Temperature 98.7 F 05/03/17 05:00 Pulse Rate 63 05/03/17 05:00 Respiratory Rate 20 05/03/17 05:00 Blood Pressure 121/67 05/03/17 05:00 O2 Sat by Pulse Oximetry (%) 94 L 05/02/17 20:14 Constitutional: Yes: Well Nourished Cardiovascular: Yes: WNL Respiratory: Yes: WNL Gastrointestinal: Yes: WNL Labs: INR, PTT INR 1.52 (0.82-1.09) H 05/01/17 10:35 Assessment/Plan No adverse effect of anesthetic, no nausea or vomiting. Pain controlled. Dept of anesthesia will sign off care at this time
[2017-05-03 07:20] LABS: INR 1.4 (0.82-1.09); PROTHROMBIN TIME (PATIENT) 15.8 SEC (9.98-11.88)
[2017-05-03 07:41] LABS: CHLORIDE 108 mmol/L (98-107); POTASSIUM 4.1 mmol/L (3.5-5.1); SODIUM 141 mmol/L (136-145)
[2017-05-03 07:50] LABS: ALK PHOS 122 U/L (45-117); ANION GAP 5 (8-16); BILIRUBIN,TOTAL 1.5 mg/dL (0.2-1.0); BLOOD UREA NITROGEN 18 mg/dL (7-18); CALCIUM 8.1 mg/dL (8.5-10.1); CO2 28 mmol/L (21-32); CREATININE 0.9 mg/dL (0.7-1.3); GLUCOSE,RANDOM 87 mg/dL (74-106); LIPASE 165 U/L (73-393); SGOT/AST 41 U/L (15-37); SGPT/ALT 97 U/L (12-78); TOT PROT 5.9 g/dl (6.4-8.2)
[2017-05-03 08:31] LABS: MCH 40.7 pg (25.7-33.7)
[2017-05-03] MEDS ORDERED: PT OWN MED DRAWER 7, Y5N ONE (08:39)
--- NOTE | 2017-05-03 08:43 | DS ---
Physical Examination Vital Signs: Vital Signs Temperature 98.7 F 05/03/17 05:00 Pulse Rate 63 05/03/17 05:00 Respiratory Rate 20 05/03/17 05:00 Blood Pressure 121/67 05/03/17 05:00 O2 Sat by Pulse Oximetry (%) 94 L 05/02/17 20:14 Findings/Remarks: feels better Cardiovascular: Yes: Regular Rate and Rhythm Respiratory: Yes: Regular, CTA Bilaterally Gastrointestinal: Yes: Normal Bowel Sounds, Soft. No: Tenderness Labs: CBC, BMP 05/03/17 06:45 05/03/17 06:45 Discharge Summary Reason For Visit: ACUTE CHOLANGITIS Current Active Problems Acute biliary pancreatitis without infection or necrosis (Acute) Acute cholangitis (Acute) Biliary acute pancreatitis (Acute) Calculus of gallbladder with cholecystitis with biliary obstruction (Acute) Cholecystitis (Acute) Cholelithiasis with cholangitis with biliary obstruction (Acute) Epigastric abdominal pain (Acute) Hospital Course: 86yo M with ascending aortic aneurysm on nebivolol and baby asa daily, s/p bilateral inguinal hernia repair and laparoscopic ventral hernia repair secondary to associated intestinal obstruction 03/17, was in usual state of health recently but has experienced chills and feeling very cold the last two nights, some diarrhea yesterday with a little nausea but no vomiting, and this morning experienced significant upper central abdominal pain and could not get himself up off the toilet. He was brought to the ER by EMS, and noted to have oral temp 100, rectal temp 103, wbc 16 with elevated LFTs (bili 8/6 direct), BUN /Cr 17/1.1, INR 1.5, neg UA, and US showed gallbladder with sludge but no stones , and no other signs of cholecystitis or biliary ductal dilation. He has been given some IV fluids, kept NPO, pain responded well to morphine, and he had a dose of Zosyn in the ER. Comfortable this am - Past Medical History Cardiovascular: Yes: Aneurysm (ascending aortic aneurysm (4.1 cm per echo) ), HTN Gastrointestinal: Yes: Diverticulosis, Other (colonic polyps) - Past Surgical History Past Surgical History: Yes: Cataract Removal (bilateral), Colonoscopy, Hernia Repair (bilateral inguinal, laparoscopic ventral w/associated obstruction 03/17 at [facility]), Upper Endoscopy - Problems (1) Acute cholangitis Assessment/Plan: IV ABX ID/GI/SURGERY ON BOARD FOLLOW LABS surgical consult-- A/P: POD1 s/p laparoscopic cholecystectomy doing well tolerating diet, voiding, able to ambulate PT seeing to evaluate if safe for d/c home re: ambulation and stairs Tylenol prn for pain, no narcotics needed ok for d/c home and f/u in 2 weeks (pt to call for appt) when cleared by PT instructions in d/c plan (2) Biliary acute pancreatitis Assessment/Plan: ABOVE Code(s): K85.10 - BILIARY ACUTE PANCREATITIS WITHOUT NECROSIS OR INFECTION (3) Cholelithiasis with cholangitis with biliary obstruction Assessment/Plan: ABOVE Code(s): K80.21 - CALCULUS OF GALLBLADDER W/O CHOLECYSTITIS WITH OBSTRUCTION; K83.0 - CHOLANGITIS Qualifiers: Cholelithiasis location: bile duct Cholangitis acuity: acute Qualified Code(s): K80.33 - Calculus of bile duct with acute cholangitis with obstruction (4) Aneurysm, aorta, thoracic Assessment/Plan: STABLE CT NOTED--NO SIGNIFICANT CHANGE Code(s): I71.2 - THORACIC AORTIC ANEURYSM, WITHOUT RUPTURE Qualifiers: Presence of rupture: without rupture Qualified Code(s): I71.2 - Thoracic aortic aneurysm, without rupture (5) Hypertension Assessment/Plan: MONITOR ON CURRENT MEDS Code(s): I10 - ESSENTIAL (PRIMARY) HYPERTENSION Qualifiers: Hypertension type: essential hypertension Qualified Code(s): I10 - Essential (primary) hypertension Condition: Good - Instructions Diet, Activity, Other Instructions: Postoperative instructions: You had a laparoscopic cholecystectomy on 05/01/[address] Regis Hickman of [facility]. Your gallbladder was removed, because you had cholecystitis with cholangitis and biliary pancreatitis - inflammation and infections of the pancreas, gallbladder and bile duct. Activity: Resume your usual activities gradually, but no heavy exertion or lifting more than 10-15 pounds for 1 month. Remove dressings 48 hours after surgery; sticky tapes underneath will fall off by themselves. You may shower daily starting then, just pat the incision areas dry. No bath or swimming until skin incisions have healed. Eat lightly at first, but advance to your usual diet as tolerated. Pain: For pain, you may use Tylenol (acetaminophen) 1-2 tabs every 6 hours as needed. Do not take more than 4000mg of acetaminophen in a day. Take medications as prescribed or indicated on the labeling. If you are constipated, take a stool softener 1-2 times daily or prune juice to keep your stools soft and moving. Do NOT resume your daily baby aspirin until May 07. Then you may start taking it every day. Follow-up: Call Dr. Hickman's office at [phone] to make your postop appointment (Wednesday ~2 weeks after surgery). Clinic is held in the [facility] on the first floor of [facility]. Call the office if you have: * increasing pain not responsive to pain medication * fever of 101F or higher * vomiting * unusual or increasing bleeding or drainage from wounds * increasing redness or swelling at wound sites Also, see Dr. Ingram within 1-2 weeks. Referrals: Regis Hickman MD [Staff Physician] - 2 Weeks Disposition: HOME - Home Medications Comprehensive Discharge Medication List: Ambulatory Orders Nebivolol HCl [Bystolic] 2.5 mg PO DAILY 12/05/14 Aspirin [ASA -] 81 mg PO DAILY 03/01/16 Folic Acid 1 mg PO DAILY 03/01/16 Acetaminophen [Tylenol .Regular Strength -] 650 mg PO Q6H PRN tablet 05/03/17
--- NOTE | 2017-05-03 09:03 | PN ---
Progress Note, Physician History of Present Illness: POD 2 s/p Lap Bhargavi Patient feeling well. Tolerating diet. +BM No pain, fevers, chills. - Current Medication List Current Medications: Active Medications Acetaminophen (Tylenol -) 650 mg PO Q6H PRN PRN Reason: PAIN Last Admin: 05/02/17 11:00 Dose: 650 mg Enoxaparin Sodium (Lovenox -) 30 mg SQ DAILY CANDY Last Admin: 05/02/17 09:37 Dose: 30 mg Piperacillin Sod/Tazobactam (Sod 4.5 gm/ Dextrose) 100 mls @ 200 mls/hr IVPB Q8H-IV CANDY PRN Reason: Protocol Last Admin: 05/03/17 02:30 Dose: 200 mls/hr Nebivolol (Bystolic -) 2.5 mg PO DAILY CANDY Last Admin: 05/02/17 09:37 Dose: 2.5 mg Ondansetron HCl (Zofran Injection) 4 mg IVPUSH Q6H PRN PRN Reason: NAUSEA AND/OR VOMITING - Objective Vital Signs: Vital Signs Temperature 98.7 F 05/03/17 05:00 Pulse Rate 63 05/03/17 05:00 Respiratory Rate 20 05/03/17 05:00 Blood Pressure 121/67 05/03/17 05:00 O2 Sat by Pulse Oximetry (%) 94 L 05/02/17 20:14 Constitutional: Yes: No Distress, Calm Eyes: Yes: Conjunctiva Clear, EOM Intact, Sclera Icterus HENT: Yes: Atraumatic, Normocephalic. No: Thrush Neck: Yes: Supple, Trachea Midline Cardiovascular: Yes: Regular Rate and Rhythm, S1, S2 Respiratory: Yes: Regular, CTA Bilaterally Gastrointestinal: Yes: Normal Bowel Sounds, Soft, Abdomen, Obese, Other. No: Tenderness Edema: No Integumentary: Yes: Jaundice Neurological: Yes: Alert, Oriented Labs: CBC, BMP 05/03/17 06:45 05/03/17 06:45 INR, PTT INR 1.40 (0.82-1.09) H 05/03/17 06:45 Assessment/Plan Assessment: 1. POD 2 s/p lap bharagvi Plan: 1. Transition to PO abx, Augmentin BID 2. Patient to be discharged today
[2017-05-03] MEDS: ENOXAPARIN NA (PORCINE) 30 MG/0.3 ML DISP.SYRIN SQ SCH (10:28)
[2017-05-03] MEDS: NEBIVOLOL 2.5 MG TABLET (FP) PO SCH (10:29)
--- NOTE | 2017-05-03 14:26 | PN ---
Progress Note (short form) - Note Progress Note: Pt s/p lap bhargavi for biliary pancreatitis and cholecystitis with cholangitis, resolved and feeling well. Seen and examined sitting up in chair, eating lunch. Had BM yesterday after PT saw him. Pain controlled with Tylenol. Awaiting physical therapy eval for likely discharge home today. Vital Signs Period Temp Pulse Resp BP Sys/Shipley Pulse Ox Last 24 Hr 97.6 F-98.7 F 50-63 18-20 102-142/56-74 94 PE: A&O, sitting in chair No scleral icterus, no jaundice No oxygen, no SOB Abdomen soft, obese, nontender, dressings c/d/i - removed, steristrips intact x 4 No edema or cyanosis CBCD WBC 9.2 K/mm3 (4.0-10.0) D 05/03/17 06:45 RBC 2.93 M/mm3 (4.00-5.60) L 05/03/17 06:45 Hgb 11.9 GM/dL (11.7-16.9) D 05/03/17 06:45 Hct 34.1 % (35.4-49) L 05/03/17 06:45 MCV 116.3 fl (80-96) H 05/03/17 06:45 MCHC 35.0 g/dl (32.0-35.9) 05/03/17 06:45 RDW 20.3 % (11.9-15.9) H 05/03/17 06:45 Plt Count 164 K/MM3 (134-434) D 05/03/17 06:45 MPV 10.5 fl (7.5-11.1) 05/03/17 06:45 CMP Sodium 141 mmol/L (136-145) 05/03/17 06:45 Potassium 4.1 mmol/L (3.5-5.1) 05/03/17 06:45 Chloride 108 mmol/L (98-107) H 05/03/17 06:45 Carbon Dioxide 28 mmol/L (21-32) 05/03/17 06:45 Anion Gap 5 (8-16) L 05/03/17 06:45 BUN 18 mg/dL (7-18) 05/03/17 06:45 Creatinine 0.9 mg/dL (0.7-1.3) 05/03/17 06:45 Creat Clearance w eGFR > 60 (>60) 05/03/17 06:45 Calcium 8.1 mg/dL (8.5-10.1) L 05/03/17 06:45 Total Bilirubin 1.5 mg/dL (0.2-1.0) H D 05/03/17 06:45 AST 41 U/L (15-37) H D 05/03/17 06:45 ALT 97 U/L (12-78) H 05/03/17 06:45 Alkaline Phosphatase 122 U/L (45-117) H 05/03/17 06:45 Total Protein 5.9 g/dl (6.4-8.2) L 05/03/17 06:45 Albumin 3.0 g/dl (3.4-5.0) L 05/03/17 06:45 A/P: POD2 s/p laparoscopic cholecystectomy doing well outer dressings removed, steristrips intact tolerating diet, voiding, had BM, ambulating with rolling walker PT seeing to evaluate if safe for d/c home re: ambulation and stairs Tylenol prn for pain, no narcotics needed ok for d/c home and f/u in 2 weeks (pt to call for appt) when cleared by PT instructions in d/c plan Problem List - Problems (1) Acute biliary pancreatitis without infection or necrosis Code(s): K85.10 - BILIARY ACUTE PANCREATITIS WITHOUT NECROSIS OR INFECTION (2) Acute cholangitis Code(s): K83.0 - CHOLANGITIS (3) Calculus of gallbladder with cholecystitis with biliary obstruction Code(s): K80.01 - CALCULUS OF GALLBLADDER W ACUTE CHOLECYSTITIS W OBSTRUCTION Qualifiers: Cholecystitis acuity: acute Qualified Code(s): K80.01 - Calculus of gallbladder with acute cholecystitis with obstruction (4) Aneurysm, aorta, thoracic Code(s): I71.2 - THORACIC AORTIC ANEURYSM, WITHOUT RUPTURE Qualifiers: Presence of rupture: without rupture Qualified Code(s): I71.2 - Thoracic aortic aneurysm, without rupture
[2017-05-03 15:19] VITALS: BP 120/65; PULSE 50
--- NOTE | 2017-05-03 16:12 | PN ---
Teaching Attending Note Name of Resident: Won Faith ATTENDING PHYSICIAN STATEMENT I saw and evaluated the patient. I reviewed the resident's note and discussed the case with the resident. I agree with the resident's findings and plan as documented. SUBJECTIVE: No c/o abdominal pain Tolerating diet No fever/ chills OBJECTIVE: Anicteric cor S1S2 Lungs clear Abdomen soft, non tender ASSESSMENT AND PLAN: POD #2 laparoscopic cholecystectomy S/P cholecystitis, biliary pancreatitis Substitute po Augmentin bid x 48-72hr
--- NOTE | 2017-05-04 12:45 | PATH ---
Surgical Pathology Report Patient Name: ANABEL RASMUSSEN [facility]. Rec. #: [id number] /Age/Gender: 1930 (Age: 86) / M Account: [id number] Location: 4 W TELEMETRY U Taken: 05/01/2017 Received: 05/03/2017 Reported: 05/04/2017 Physicians: Shireen Carmona M.D. Specimen(s) Received GALLBLADDER Clinical History Acute biliary pancreatitis, cholecystitis, cholangitis Final Diagnosis GALLBLADDER, LAPAROSCOPIC CHOLECYSTECTOMY: ACUTE AND CHRONIC CHOLECYSTITIS AND CHOLELITHIASIS. Electronically Signed Mary Summers M.D. Gross Description Received in formalin, labeled "gallbladder," is a 10.2 x 4.0 x 3.6 cm. gallbladder with a 0.2 cm. in length portion of cystic duct attached. The outer surface is koch-jensen and varies from smooth to shaggy. The lumen contains brown-green, sludgelike bile as well as the abundant black, irregular choleliths averaging 0.3 cm in greatest dimension. The mucosa is green and velvety. The wall of the gallbladder measures 0.1 cm. in thickness. Knitter Mechanic sections are submitted in one cassette. 05/03/201705/03/2017
== END 2017-05-03 16:53 | disposition home or self-care (01) | DRG 417 ==
LOC: JER 10:06 → JERBED 15:13 → J4W 19:45
PROVIDERS: ADMIT Family Medicine; ATTEND Family Medicine
PROC: 0DNU4ZZ Release Omentum, Percutaneous Endoscopic Approach (ICD-10-PCS; 2017-05-01)
PROC: 0FT44ZZ Resection of Gallbladder, Percutaneous Endoscopic Approach (ICD-10-PCS; principal; 2017-05-01 12:34)
DX: K80.01 Calculus of gallbladder with acute cholecystitis with obstruction (principal); K85.10 Biliary acute pancreatitis without necrosis or infection; I71.4 Abdominal aortic aneurysm, without rupture; K83.0 Cholangitis; Z87.891 Personal history of nicotine dependence; I10 Essential (primary) hypertension; K66.0 Peritoneal adhesions (postprocedural) (postinfection)
CPT/HCPCS: 36415; 36430; 71045-TC-FY; 71250-TC; 74182-TC; 76705-TC; 80053; 81003; 82150; 82248; 82550; 82803; 83605; 83690; 84484; 85025; 85610; 85730; 86850; 86900; 86901; 87040; 87086; 88304-TC; 93005; 93010; 94010; 94760; 97116-GP; 97161-GP; 99285-25; J1644; P9017

== ENCOUNTER 2017-12-02 17:18 | Emergency (ER) | payer OTHER ==
--- NOTE | 2017-12-02 17:34 | PDOC ---
Rapid Medical Evaluation Chief Complaint: Injury Time Seen by Provider: 12/02/17 17:30 Medical Evaluation: Allergies Allergy/AdvReac Type Severity Reaction Status Date / Time No Known Allergies Allergy Verified 04/28/17 10:32 12/02/17 17:31 CC: Facial pain HPI: Pt is an 87 YO male who complains of epistaxis post fall. He denies pain. Pt is on ASA. I have performed a brief in-person evaluation of this patient. Pertinent Physical Findings: Skin: Clear Lungs: Clear Heart: RRR MS: No pain upon palpation to the nasal bridge or facial bones. Neuro: Alert Psych: Appropriate affect I have ordered: nothing ordered at this time. The patient will proceed to: FTK for further evaluation. Discharge Disposition - Diagnosis Epistaxis - Referrals - Patient Instructions - Post Discharge Activity
[2017-12-02 17:38] VITALS: BP 133/77; PULSE 62; TEMP 98; BMI 25.7
--- NOTE | 2017-12-02 19:59 | PDOC ---
History of Present Illness - General Chief Complaint: Injury Stated Complaint: FACIAL INJURY Time Seen by Provider: 12/02/17 17:30 History Source: Patient Exam Limitations: No Limitations - History of Present Illness Initial Comments: 12/02/17 19:56 Pt is an 87yo m with PMH of thoracic aortic aneurysm on Benicar presenting to ED with son for nosebleeding. Pt was in the home when he tripped and fell at around 4pm today. Fall was witnessed by son. The patient then started to have nosebleeding. He soaked 1 towel. He denies losing consciousness, facial pain, dental pain, lightheadedness. He is not taking any blood thinners, he takes ASA. Denies chest pain, SOB, abdominal pain. PMH: see hpi Allergies: nkda Social: denies Past History - Past Medical History Allergies/Adverse Reactions: Allergies Allergy/AdvReac Type Severity Reaction Status Date / Time No Known Allergies Allergy Verified 12/02/17 17:32 Home Medications: Ambulatory Orders Nebivolol HCl [Bystolic] 2.5 mg PO DAILY 12/05/14 Aspirin [ASA -] 81 mg PO DAILY 03/01/16 Folic Acid 1 mg PO DAILY 03/01/16 Acetaminophen [Tylenol .Regular Strength -] 650 mg PO Q6H PRN tablet 05/03/17 Amoxicillin/Potassium Clav [Augmentin 875-125 Tablet] 1 each PO BID #8 tablet Anemia: Yes Cardiac Disorders: Yes (aneurysm) COPD: No GI Disorders: Yes (DIVERTICULOSIS;COLON POLYPS) HTN: Yes - Surgical History Abdominal Surgery: Yes (HERNIA REPAIR) - Immunization History Immunization Up to Date: Yes - Suicide/Smoking/Psychosocial Hx Smoking History: Never smoked Have you smoked in the past 12 months: No If you are a former smoker, when did you quit?: 60 yrs ago Information on smoking cessation initiated: No Hx Alcohol Use: No Drug/Substance Use Hx: No Substance Use Type: None Hx Substance Use Treatment: No Review of Systems - Review of Systems Constitutional: No: Chills, Fever HEENTM: Yes: Nose Bleeding. No: Eye Pain, Ear Pain, Nose Pain, Throat Pain, Mouth Pain, Difficulty Swallowing Respiratory: No: Cough, Shortness of Breath, Hemoptysis Cardiac (ROS): No: Chest Pain, Palpitations, Syncope ABD/GI: No: Constipated, Diarrhea, Nausea, Rectal Bleeding, Vomiting, Abdominal cramping : No: Dysuria, Hematuria Musculoskeletal: No: Back Pain, Joint Pain, Muscle Pain, Neck Pain Integumentary: No: Bruising, Rash Neurological: No: Headache, Numbness, Tingling Hematologic/Lymphatic: No: Anemia, Blood Clots *Physical Exam - Vital Signs Last Vital Signs Temp Pulse Resp BP Pulse Ox 98.0 F 62 16 133/77 98 12/02/17 17:33 12/02/17 17:33 12/02/17 17:33 12/02/17 17:33 12/02/17 17:33 - Physical Exam HEENT: positive: EOMI, SHANELL, Pharynx Normal, Hearing Grossly Normal, Other ( clots noted in R nare, not actively bleeding. Superficial Laceration to L medial nostril. septum intact. R nostril appears swollen yet not tender. No dental deformities, no tongue laceration. No blood in oropharynx ). negative: Pharyngeal Erythema, Tonsillar Exudate, Sinus Tenderness Neck: positive: Trachea midline, Supple. negative: Lymphadenopathy (R), Lymphadenopathy (L) Respiratory/Chest: positive: Lungs Clear, Normal Breath Sounds. negative: Crackles, Rhonchi, Stridor, Wheezing Cardiovascular: positive: Regular Rhythm, Regular Rate, S1, S2. negative: Edema , JVD, Murmur Vascular Pulses: Carotid (R): 2+, Carotid (L): 2+, Dorsalis-Pedis (R): 2+, Doralis-Pedis (L): 2+ Gastrointestinal/Abdominal: positive: Normal Bowel Sounds, Soft. negative: Distended, Guarding, Rebound, Tenderness Musculoskeletal: negative: CVA Tenderness (R), CVA Tenderness (L) Extremity: positive: Normal Capillary Refill, Normal Inspection, Normal Range of Motion Integumentary: positive: Normal Color, Dry, Warm. negative: Pale, Cold, Clammy , Rash Neurologic: positive: behavioral psychologist II-XII NML intact, Fully Oriented, Alert, Normal Mood/ Affect, Normal Response, Motor Strength 5/5 Medical Decision Making - Medical Decision Making 12/02/17 21:23 87 yo m with PMH of thoracic aneurysm not on blood thinners, taking ASA presenting to ED with epistaxis s/p mechanical fall in the home. Fall was witnessed by son. Pt did not lose consciousness. Vitals: wnl PE: clotted blood in both nares, small 1-2mm laceration to L medial nare without septum damage. No blood in oropharynx. Pt was not actively bleeding during initial examination however upon inspection of laceration, laceration started to bleed with venous flow. Pt asked to hold gauze to nose and pinch. Upon reevaluation, laceration was clotted and no active nasal bleeding. Pt sent to CT for CT head and facial bones to r/o hemorrhage and fracture. Pt alert throughout ED stay and not actively bleeding. 12/02/17 23:33 CT head/face: negative for hemorrhage, no acute fractures. Density in R nare most likley due to clot. Clot is nontender. Laceration is superficial and clotted. No need for repair at this time. Pt hemodynamically stable, alert, ambulatory and not actively bleeding. Safe for d/c home. Pt was given return precautions and verbalized understanding. Pt agreed with plan. *DC/Admit/Observation/Transfer Diagnosis at time of Disposition: Epistaxis - Discharge Dispostion Disposition: HOME Condition at time of disposition: Stable Decision to Admit order: No - Referrals Referrals: Crescencio Ingram MD [Primary Care Provider] - - Patient Instructions Printed Discharge Instructions: DI for Nosebleed Additional Instructions: You were seen here today for evaluation of nosebleed. We did a CT scan and everything was normal. Please follow up with your doctor within the next week. Do not apply too much pressure to your nose and do not pick anything. You can blow your nose to remove clots, but do not use your fingers or q-tips. Apply pressure for about 30 minutes to your nose if your nose starts to bleed again Please come back to the emergency room if: your nose continues to bleed and does not stop, you feel lightheaded, you obtain another facial injury, you develop headache, you feel weakness/numbness/tingling or if any new concerning symptom develops. Thank you - Post Discharge Activity
--- NOTE | 2017-12-02 21:01 | PDOC ---
Attending Attestation - Resident Resident Name: MarikaAlycia - ED Attending Attestation I have performed the following: I have examined & evaluated the patient, The case was reviewed & discussed with the resident, I agree w/resident's findings & plan - HPI HPI: 12/02/17 20:56 87-year-old male on aspirin presents status post witnessed trip and fall with facial injury and head injury. No LOC, no headache, no change in consciousness or nausea/vomiting. Positive epistaxis after the fall, patient denies any other complaints, including any musculoskeletal injury. - Physicial Exam PE: 12/02/17 20:57 General: Patient is alert and in no acute distress. Speech is clear and appropriate. Head: forehead superficial ecchymosis without hematoma or skull deformity, nontender. HEENT: Pupils are equal round and reactive to light, extraocular movements are intact. Nasal septal deformity with some tenderness, resolved L epistaxis, 2mm laceration to tip of nose, no septal hematoma. The oropharynx is clear, slight loosening of R upper front tooth, no mental ttp or deformity, no tongue lac. Neck: The trachea is midline, there is no stridor. There is no midline cervical spine tenderness, full range of motion of neck. Chest: Nontender, no ecchymosis or abrasions. Heart: S1-S2, regular rate and rhythm. No murmurs. Lungs: Clear to auscultation bilaterally. Symmetric chest rise. Abdomen: Soft/nontender/nondistended. Bowel sounds are normal. There is no abdominal or flank ecchymosis. Back/Pelvis: There is no midline spine tenderness or step-off. Pelvis is stable and nontender. Extremities: There is no extremity deformity or joint swelling. No focal bony tenderness throughout. 2+ distal pulses throughout. Neuro: Alert and oriented x3. Cranial nerves II through XII are intact. 5 out of 5 motor strength x4 extremities. [id number] is intact. No pronator drift. Gait is stable. Skin: nose abrasions, no other hematomas/lacerations. Psych: Affect is appropriate. - Medical Decision Making 12/02/17 21:00 87-year-old male with facial/head injury status post mechanical trip and fall, no LOC and neurologically intact. Epistaxis has resolved, apply pressure and local wound care for small laceration , not amenable to suturing Likely nasal bone fracture, rule out TBI with CT Otherwise well-appearing without other injuries, disposition accordingly
== END 2017-12-02 22:00 | disposition home or self-care (01) ==
LOC: JERFT 17:18 → JER 17:18
DX: S09.92XA Unspecified injury of nose, initial encounter (principal); R04.0 Epistaxis; W18.39XA Other fall on same level, initial encounter; Y93.89 Activity, other specified; Y92.018 Other place in single-family (private) house as the place of occurrence of the external cause; Y99.8 Other external cause status; Z86.79 Personal history of other diseases of the circulatory system; Z79.82 Long term (current) use of aspirin
CPT/HCPCS: 70450-TC; 70486-TC; 99282-25